=== PATIENT | female | born 1985 | race Hispanic/Latino ===

== ENCOUNTER 2022-05-29 12:14 | Emergency (ER) | payer SELFPAY ==
--- NOTE | 2022-05-29 12:54 | RAD REPORT ---
EXAM DESCRIPTION: RAD - Chest Single View - 05/29/2022 12:46 pm CLINICAL HISTORY: CHEST PAIN COMPARISON: No comparisons FINDINGS: Lines: None. Lungs: No evidence of edema or pneumonia. Pleural: No significant pleural effusions or pneumothorax. Cardiac: The heart size is within normal limits. Bones: No acute fractures. Other: IMPRESSION: No acute cardiopulmonary disease.
[2022-05-29 13:01] LABS: Absolute Lymphocytes (CBC) 1.7 K/uL (0.7-4.9); Lymphocytes % 20.3 % (15.3-44.8); MPV 7.5 fL (7.6-11.3); RBC Red Blood Cell Count 4.62 M/uL (3.86-4.86)
[2022-05-29] MEDS ORDERED: NA CHLORIDE 0.9% 1,000 ML ONE (13:05)
[2022-05-29 13:19] LABS: BUN Blood Urea Nitrogen 8 mg/dL (7-18); Bicarbonate 26 mmol/L (21-32); Glomerular Filtration Rate 93 ml/min (=/>90); Glucose Level 134 mg/dL (74-106); Potassium 3.1 mmol/L (3.5-5.1); Sodium Level 141 mmol/L (136-145)
[2022-05-29 13:20] LABS: Troponin High Sensitivity < 3.0 pg/mL (<58.9)
[2022-05-29 14:29] LABS: Urine Blood 2+ (Negative); Urine Glucose Negative (Negative); Urine Protein Negative (Negative); Urine Specific Gravity <=1.005 (1.005-1.030); Urine pH 6.5 (5.0-7.0)
[2022-05-29 14:56] LABS: SARS-CoV-2 Antigen Rapid Res Negative (Negative)
--- NOTE | 2022-05-29 15:07 | RAD REPORT ---
EXAM DESCRIPTION: CT - Chest For Pe Angio - 05/29/2022 2:50 pm CLINICAL HISTORY: chest pain, SOB, positive d dimer COMPARISON: No comparisons TECHNIQUE: Dynamically enhanced axial 3 mm thick images of the chest were obtained during administra tion of <100> mL Isovue 370 IV contrast. Coronal and oblique reconstruction images were generated and reviewed. Exam utilizes a protocol for optimal evaluation of pulmonary arterial tree. Maximum intensity projections 3D imaging was utilized All CT scans are performed using dose optimization technique as appropriate and may include automated exposure control or mA/KV adjustment according to patient size. FINDINGS: Chest Wall: No suspicious thyroid nodules or pathologic lymphadenopathy. Bilateral breast prostheses. Lungs: No acute abnormality. Pleura: No significant effusions or pneumothorax. Mediastinum/marilyn: No pathologic lymphadenopathy. Small hiatal hernia with thickened distal esophagus. Pulmonary arteries/Aorta: No filling defect identified. No aortic aneurysm. Heart: No significant pericardial effusion. Normal heart size. Upper abdomen: No acute abnormality. Bones: No acute abnormality. Lower chest: No acute abnormality. IMPRESSION: Negative for pulmonary embolism. No acute findings within the chest. Thickened distal es ophagus which could reflect esophagitis.
--- NOTE | 2022-05-29 16:55 | ER ---
Nurse's Notes [facility] Name: Katerina Howe Age: 36 yrs Sex: Female : 1985 Arrival Date: 05/29/2022 Time: 12:15 Bed 16 Private MD: Diagnosis: Palpitations;Lightheaded;Tachycardia, unspecified Presentation: 05/29 12:21 Chief complaint: Sudden onset substernal chest pressure, SOB, and palpitations while hb sitting eating lunch. Coronavirus screen: At this time, the client does not indicate any symptoms associated with coronavirus-19. Ebola Screen: No symptoms or risks identified at this time. Initial Sepsis Screen: Does the patient meet any 2 criteria? No. Patient's initial sepsis screen is negative. Does the patient have a suspected source of infection? No. Patient's initial sepsis screen is negative. Risk Assessment: Do you want to hurt yourself or someone else? Patient reports no desire to harm self or others. Onset of symptoms was May 29, 2022. 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 - Social history:: Smoking status: Patient denies any tobacco usage or history of. Screenin:51 Abuse screen: Denies threats or abuse. Denies injuries from another. Nutritional ld1 screening: No deficits noted. Tuberculosis screening: No symptoms or risk factors identified. Fall Risk None identified. Assessment: 12:51 General: Appears in no apparent distress. comfortable, Behavior is calm, cooperative, ld1 appropriate for age. Pain: Denies pain. Pain:. Neuro: Level of Consciousness is awake, alert, obeys commands, Oriented to person, place, time, situation. Cardiovascular: Capillary refill < 3 seconds Patient's skin is warm and dry. Respiratory: Airway is patent Respiratory effort is even, unlabored. GI: Abdomen is flat, non-distended. : No signs and/or symptoms were reported regarding the genitourinary system. EENT: No signs and/or symptoms were reported regarding the EENT system. Derm: No signs and/or symptoms reported regarding the dermatologic system. Musculoskeletal: No signs and/or symptoms reported regarding the musculoskeletal system. 13:30 Reassessment: Pt c/o dizziness - Notified ERP - See MAR for orders. ld1 16:55 Pain: Pain began. eh3 Vital Signs: 12:21 BP 146 / 100; Pulse 106; Resp 16; Temp 98.5; Pulse Ox 100% on R/A; Weight 54.43 kg (M); hb Height 5 ft. (152.40 cm); Pain 3/10; 12:51 BP 137 / 92; Pulse 91; Resp 18; Pulse Ox 100% on R/A; ld1 13:31 BP 125 / 83; Pulse 82; Resp 16; Pulse Ox 100% on R/A; ld1 14:31 BP 126 / 80; Pulse 93; Resp 18; Pulse Ox 100% on R/A; ld1 15:27 BP 132 / 86; Pulse 97; Resp 18; Pulse Ox 100% on R/A; ld1 16:13 BP 142 / 96; Pulse 90; Resp 18; Pulse Ox 100% on R/A; ld1 12:21 Body Mass Index 23.44 (54.43 kg, 152.40 cm) hb ED Course: 12:15 Patient arrived in ED. mr 12:19 Alexis Rodrigez DO is Attending Physician. ms3 12:24 Triage completed. hb 12:24 Arm band placed on. hb 12:35 Stephanie Salinas, RN is Primary Nurse. ld1 12:47 XRAY Chest (1 view) In Process Unspecified. EDMS 12:51 Patient has correct armband on for positive identification. Placed in gown. Bed in low ld1 position. Call light in reach. Side rails up X2. environmental monitoring technician on. Pulse ox on. NIBP on. Door closed. Noise minimized. Warm blanket given. 12:51 No provider procedures requiring assistance completed. Inserted saline lock: 20 gauge ld1 in left antecubital area, using aseptic technique. Blood collected. Patient maintains SpO2 saturation greater than 95% on room air. 14:31 SARS-COV-2 Antigen Rapid Sent. ld1 14:52 CT Chest For PE Angio In Process Unspecified. EDMS 16:55 Calvin Knapp MD is Referral Physician. ms3 17:02 IV discontinued, intact, bleeding controlled, No redness/swelling at site. ld1 Administered Medications: No medications were administered Medication: 12:51 VIS not applicable for this client. ld1 Outcome: 16:54 Discharge ordered by MD. ms3 17:02 Discharged to home ambulatory. ld1 17:02 Condition: stable 17:02 Discharge instructions given to patient, Instructed on discharge instructions, follow up and referral plans. Demonstrated understanding of instructions, follow-up care. 17:02 Patient left the ED. ld1 Signatures: Dispatcher [employer] EDPA HoweMariah forde mr Annette Cooley, RN RN Alexis Rodrigez DO DO ms3 Stephanie Salinas RN RN ld1 Lora Canas 3 Corrections: (The following items were deleted from the chart) 12:25 12:24 PMHx: Hyperthyroidism; hb hb
--- NOTE | 2022-05-29 16:55 | EDPHYS ---
Physician Documentation [facility] Name: Katerina Howe Age: 36 yrs Sex: Female : 1985 Arrival Date: 05/29/2022 Time: 12:15 Bed 16 Private MD: ED Physician Alexis Rodrigez HPI: 05/29 12:20 This 36 yrs old Female presents to ER via Ambulatory with complaints of Chest ms3 Pain, High Blood Pressure. 12:20 The patient or guardian reports chest pain that is located primarily in the substernal ms3 area. The pain does not radiate. Associated signs and symptoms: Pertinent positives: dizziness, nausea, Pertinent negatives: vomiting. The chest pain is described as squeezing. Modifying factors: The symptoms are alleviated by nothing. the symptoms are aggravated by nothing. Severity of pain: At its worst the pain was moderate in the emergency department the pain is unchanged is a 5 / 10. 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 - Social history:: Smoking status: Patient denies any tobacco usage or history of. ROS: 12:20 Constitutional: Negative for fever, and chills. ms3 12:20 Respiratory: Negative for shortness of breath, cough, wheezing, and pleuritic chest pain, MS/Extremity: Negative for injury and deformity, Skin: Negative for injury, rash, and discoloration, Neuro: Negative for headache, weakness, numbness, tingling. 12:20 Cardiovascular: Positive for chest pain. 12:20 Abdomen/GI: Positive for nausea. 12:20 All other systems are negative. Exam: 12:20 Constitutional: This is a well developed, well nourished patient who is awake, alert, ms3 and in no acute distress. Head/Face: Normocephalic, atraumatic. Chest/axilla: Normal chest wall appearance and motion. Nontender with no deformity. Cardiovascular: Regular rate and rhythm with a normal S1 and S2. No gallops, murmurs, or rubs. Normal PMI, no JVD. No pulse deficits. Respiratory: Lungs have equal breath sounds bilaterally, clear to auscultation and percussion. No rales, rhonchi or wheezes noted. No increased work of breathing, no retractions or nasal flaring. Skin: Warm, dry with normal turgor. Normal color with no rashes, no lesions, and no evidence of cellulitis. MS/ Extremity: Pulses equal, no cyanosis. Neurovascular intact. Full, normal range of motion. Psych: Awake, alert, with orientation to person, place and time. Behavior, mood, and affect are within normal limits. 12:31 ECG was reviewed by the Attending Physician. ms3 Vital Signs: 12:21 BP 146 / 100; Pulse 106; Resp 16; Temp 98.5; Pulse Ox 100% on R/A; Weight 54.43 kg (M); hb Height 5 ft. (152.40 cm); Pain 3/10; 12:51 BP 137 / 92; Pulse 91; Resp 18; Pulse Ox 100% on R/A; ld1 13:31 BP 125 / 83; Pulse 82; Resp 16; Pulse Ox 100% on R/A; ld1 14:31 BP 126 / 80; Pulse 93; Resp 18; Pulse Ox 100% on R/A; ld1 15:27 BP 132 / 86; Pulse 97; Resp 18; Pulse Ox 100% on R/A; ld1 16:13 BP 142 / 96; Pulse 90; Resp 18; Pulse Ox 100% on R/A; ld1 12:21 Body Mass Index 23.44 (54.43 kg, 152.40 cm) hb MDM: 12:20 Differential diagnosis: abnormal EKG, acute myocardial infarction, acute pericarditis, ms3 anxiety, coronary artery disease pneumothorax, pulmonary embolus. 12:37 Patient medically screened. ms3 16:54 HEART Score: History: Slightly Suspicious (0), ECG: Normal (0), Age: < or = 45 years ms3 (0), Risk Factors: No Risk Factors Known (0), Troponin: < or = 1 x Normal Limit (0), Total Score = 0. The patient's pulmonary embolism risk score was calculated as follows: the patients heart rate is greater than 100 beats per minute (1.5 Pts). Data reviewed: vital signs, nurses notes, lab test result(s), EKG, radiologic studies, and as a result, I will discharge patient. ED course: Discussed observation with patient, her sister, and her mother. Patient states these symptoms have been ongoing for months and she would like to be discharged. Discussed risks of arrhythmia and with patient, her mother, and sister. Patient understands/ accepts risks. Patient is improved, in NAD, non-toxic appearing, ambulatory in ED, speaking full sentences.. 05/29 12:19 Order name: Basic Metabolic Panel; Complete Time: 13:31 ms3 05/29 12:19 Order name: CBC with Diff; Complete Time: 13:04 ms3 05/29 12:19 Order name: Troponin HS; Complete Time: 13:31 ms3 05/29 13:51 Order name: SARS-COV-2 Antigen Rapid; Complete Time: 15:02 ms3 05/29 13:51 Order name: D-Dimer; Complete Time: 15:02 ms3 05/29 14:30 Order name: Urine Dipstick-Ancillary; Complete Time: 15:02 EDMS 05/29 12:19 Order name: XRAY Chest (1 view); Complete Time: 13:04 ms3 05/29 12:19 Order name: EKG; Complete Time: 12:20 ms3 05/29 12:19 Order name: Cardiac monitoring; Complete Time: 12:50 ms3 05/29 12:19 Order name: EKG - Nurse/Tech; Complete Time: 12:33 ms3 05/29 12:19 Order name: IV Saline Lock; Complete Time: 12:50 ms3 05/29 12:19 Order name: Labs collected and sent; Complete Time: 12:50 ms3 05/29 12:19 Order name: O2 Per Protocol; Complete Time: 12:50 ms3 05/29 14:30 Order name: CT Chest For PE Angio; Complete Time: 15:25 ms3 05/29 12:19 Order name: O2 Sat Monitoring; Complete Time: 12:51 ms3 05/29 13:51 Order name: Urine Test (obtain specimen); Complete Time: 14:31 ms3 EC:31 Rate is 87 beats/min. Rhythm is regular. QRS Cora is Normal. CT interval is shortened. ms3 QRS interval is normal. Clinical impression: NSR with short CT interval. Interpreted by me. Reviewed by me. Administered Medications: No medications were administered Disposition Summary: 05/29/22 16:54 Discharge Ordered Location: Home ms3 Condition: Stable ms3 Diagnosis - Palpitations ms3 - Lightheaded ms3 - Tachycardia, unspecified ms3 Followup: ms3 - With: Calvin Knapp MD - When: 1 - 2 days - Reason: Recheck today's complaints Discharge Instructions: - Discharge Summary Sheet ms3 - Palpitations ms3 - Sinus Tachycardia ms3 Forms: - Medication Reconciliation Form ms3 - Thank You Letter ms3 - Work release form ms3 - Antibiotic Education ms3 - Prescription Opioid Use ms3 Signatures: Dispatcher [employer] EDAnnette Sharma RN RN Alexis Walker DO DO ms3 Corrections: (The following items were deleted from the chart) 12:25 12:24 PMHx: Hyperthyroidism; hb hb
[2022-05-29 17:29] VITALS: TEMP 98.5; O2SAT 100
[2022-05-29 17:39] VITALS: BP 142/96
--- NOTE | 2022-05-30 07:24 | EKG ---
Test Date: 2022-05-29 Test Time: 12:31:28 Sap Hana Developer: HB MEASUREMENT RESULTS: Intervals: Rate: 87 W[place]: 110 QRSD: 74 QT: 348 QTc: 418 [place]: P: 45 WY: 110 QRS: 54 T: 52 INTERPRETIVE STATEMENTS: Sinus rhythm with short [place] Otherwise normal ECG No previous ECG available for comparison Electronically Signed On 05-30-22 07:20:41 CDT by Scott Trinidad
== END 2022-05-29 17:02 | disposition home or self-care (01) ==
LOC: ER 12:14
DX: R00.2 Palpitations (principal); R42 Dizziness and giddiness; R00.0 Tachycardia, unspecified; Z20.822 Contact with and (suspected) exposure to COVID-19; R07.89 Other chest pain; R06.02 Shortness of breath; I10 Essential (primary) hypertension
CPT/HCPCS: 36415; 71045; 71275; 80048; 81003; 84484; 85025; 85379; 87811; 93005; J7030; Q9967

== ENCOUNTER 2022-07-03 19:10 | Emergency (ER) | payer SELFPAY ==
[2022-07-03] MEDS ORDERED: NA CHLORIDE 0.9% 500 ML ONE ×2 (20:25→21:52)
[2022-07-03 20:52] LABS: Absolute Lymphocytes (CBC) 2.8 K/uL (0.7-4.9); Hematocrit 45.6 % (36.0-45.0); Lymphocytes % 20.4 % (15.3-44.8); MCV 91.3 fL (80-100); RBC Red Blood Cell Count 4.99 M/uL (3.86-4.86)
[2022-07-03 20:54] LABS: Blood Morphology Comment NOT SEEN (NOT SEEN); Platelet Estimate INCR; Platelets, Giant PRESENT; White Blood Cell Scan OK (OK)
--- NOTE | 2022-07-03 21:02 | RAD REPORT ---
EXAM DESCRIPTION: RAD - Chest Single View - 07/03/2022 8:50 pm CLINICAL HISTORY: COUGH Chest pain. COMPARISON: Chest Single View dated 05/29/2022 FINDINGS: Portable technique limits examination quality. The lungs are grossly clear. The heart is normal in size. No displaced fractures. IMPRESSION: No acute intrathoracic process suspected.
[2022-07-03 21:03] LABS: Protime INR 0.98
[2022-07-03 21:11] LABS: SARS-CoV-2 Antigen Rapid Res Negative (Negative)
[2022-07-03 21:16] LABS: Urine Blood Negative (Negative); Urine Glucose Negative (Negative); Urine Protein Negative (Negative); Urine Specific Gravity 1.015 (1.005-1.030)
[2022-07-03 21:47] LABS: Albumin 4.9 g/dL (3.4-5.0); Bilirubin Direct 0.1 mg/dL (0-0.2); Bilirubin Total 0.5 mg/dL (0.2-1.0); Magnesium 2.3 mg/dL (1.8-2.4); Potassium 3.8 mmol/L (3.5-5.1); Protein, Total 9.6 g/dL (6.4-8.2)
[2022-07-03] MEDS ORDERED: ASPIRIN 81 MG CHEWABLE TABLET ONE (21:55)
[2022-07-03 21:57] LABS: Urine Specific Gravity/Preg 1.015 (1.005-1.030)
[2022-07-03 22:18] LABS: Thyroid Stimulating Hormone 1.4 uIU/mL (0.360-3.740); Troponin High Sensitivity 3.2 pg/mL (<58.9)
--- NOTE | 2022-07-03 22:24 | RAD REPORT ---
EXAM DESCRIPTION: US - Extrem Venous W Compress [place] - 07/03/2022 10:17 pm CLINICAL HISTORY: PAIN Bilateral leg edema and swelling. COMPARISON: No comparisons TECHNIQUE: Real-time sonographic interrogation of the left and right lower extremity deep venous sys tems was performed. FINDINGS: Normal compressibility, flow augmentation, phasic flow and spontaneous flow is identified in both the left and right lower extremity deep venous systems. IMPRESSION: No sonographic evidence of left or right lower extremity deep venous thrombosis.
[2022-07-03] MEDS ORDERED: PANTOPRAZOLE 40 MG INJ ONE (23:20)
--- NOTE | 2022-07-03 23:38 | ER ---
Nurse's Notes [facility] Name: Katerina Howe Age: 37 yrs Sex: Female : 1985 Arrival Date: 07/03/2022 Time: 19:15 Bed 10 Private MD: Diagnosis: Palpitations;Dizziness and giddiness;Anxiety disorder, unspecified;Elevated white blood cell count;Esophagitis, unspecified Presentation: 07/03 19:23 Chief complaint: Patient states: pt has history of anxiety attacks; she became dizzy, jh5 brain fog, blurred vision, heart racing and feeling of heat on her face...pt was diagnosed with anxiety attacks approx 5 months ago and put on buspar and states it isnt helping at all so she bought xanax off a friend and it's not helping. Has an appointment with doctor here in [place] (first name janes) on July 12. Coronavirus screen: Vaccine status: Patient reports receiving the 2nd dose of the covid vaccine. Client denies travel out of the [place] in the last 14 days. Ebola Screen: Patient negative for fever greater than or equal to 101.5 degrees Fahrenheit, and additional compatible Ebola Virus Disease symptoms Patient denies exposure to infectious person. Patient denies travel to an Ebola-affected area in the 21 days before illness onset. Initial Sepsis Screen: Does the patient meet any 2 criteria? No. Patient's initial sepsis screen is negative. Does the patient have a suspected source of infection? No. Patient's initial sepsis screen is negative. Risk Assessment: Do you want to hurt yourself or someone else? Patient reports no desire to harm self or others. Onset of symptoms was January 2022. 19:23 Method Of Arrival: Ambulatory [facility] 19:23 Acuity: SARAH 4 jh5 Triage Assessment: 19:30 General: Appears in no apparent distress. slender, well groomed, Behavior is calm, jh5 cooperative, appropriate for age, anxious. Pain: Denies pain. Cardiovascular: No deficits noted. 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 - Social history:: Smoking status: Patient denies any tobacco usage or history of. - Family history:: not pertinent. Screenin:00 Abuse screen: Denies threats or abuse. Denies injuries from another. Nutritional hb screening: No deficits noted. Tuberculosis screening: No symptoms or risk factors identified. Fall Risk None identified. Assessment: 20:58 General: Appears in no apparent distress. Behavior is calm, cooperative, appropriate kd3 for age. Neuro: Level of Consciousness is awake, alert, obeys commands, Oriented to person, place, time, situation. 21:49 Reassessment: Patient appears in no apparent distress at this time. Patient and/or hb family updated on plan of care and expected duration. Pain level reassessed. Patient is alert, oriented x 3, equal unlabored respirations, skin warm/dry/pink. 22:55 Reassessment: Patient appears in no apparent distress at this time. Patient and/or hb family updated on plan of care and expected duration. Pain level reassessed. Patient is alert, oriented x 3, equal unlabored respirations, skin warm/dry/pink. Vital Signs: 19:23 BP 127 / 98; Pulse 86; Resp 18; Temp 98.6; Pulse Ox 100% ; Weight 53.52 kg; Height 5 [facility] ft. 1 in. (154.94 cm); Pain 0/10; 20:45 BP 136 / 86; Pulse 82; Resp 15; Pulse Ox 98% on R/A; hb 22:45 BP 132 / 82; Pulse 80; Resp 15; Pulse Ox 100% ; hb 19:23 Body Mass Index 22.30 (53.52 kg, 154.94 cm) [facility] ED Course: 19:15 Patient arrived in ED. [facility] 19:30 Triage completed. [facility] 19:30 Arm band placed on right wrist. EKG completed in triage. Results shown to . [facility] 19:45 Juma Lance MD is Attending Physician. [facility] 20:30 Missed attempt(s): 20 gauge in left antecubital area. Bleeding controlled, band aid aa9 applied, catheter tip intact. 20:35 Inserted saline lock: 20 gauge in right antecubital area, using aseptic technique. aa9 Blood collected. 20:46 Patient has correct armband on for positive identification. Bed in low position. aa9 20:52 XRAY Chest (1 view) In Process Unspecified. EDMS 20:58 Yvette Borrero, RN is Primary Nurse. kd3 20:58 No provider procedures requiring assistance completed. Patient maintains SpO2 kd3 saturation greater than 95% on room air. 22:19 US Extremity Venous W Compression [place] In Process Unspecified. EDMS 22:41 US Carotid Artery Bilateral In Process Unspecified. EDMS 22:56 CT Head Brain wo Cont In Process Unspecified. EDMS 23:38 Scott Trinidad MD is Referral Physician. [facility] 23:38 Satya Pearl MD is Referral Physician. [facility] 23:38 Clyde Guzman MD is Referral Physician. [facility] 07/04 00:04 IV discontinued, intact, bleeding controlled, No redness/swelling at site. hb Administered Medications: 07/03 20:43 Drug: NS 0.9% 500 ml Route: IV; Rate: bolus; Site: right antecubital; jh 21:48 Drug: NS 0.9% 500 ml Route: IV; Rate: bolus; Site: right antecubital; hb 21:48 Drug: Aspirin Chewable Tablet 162 mg Route: PO; hb 22:22 Follow up: Response: No adverse reaction hb 23:00 Drug: ProTONIX (pantoprazole) 40 mg Route: IVP; Site: right antecubital; hb 23:25 Follow up: Response: No adverse reaction hb Medication: 20:00 VIS not applicable for this client. hb Outcome: 23:38 Discharge ordered by . [facility] 07/04 00:04 Discharged to home ambulatory. hb Condition: stable Discharge instructions given to patient, Instructed on discharge instructions, follow up and referral plans. medication usage, Demonstrated understanding of instructions, follow-up care, medications, Prescriptions given X 3. 00:05 Patient left the ED. hb Signatures: Dispatcher [employer] EDJuma Bishop MD MD cha Baxter, Heather, RN RN Rafaela Gonzalez Jessica RN RN jh5 Yvette Borrero, RN RADHA kd3 Leticia Nguyen RN RN aa9 Corrections: (The following items were deleted from the chart) 07/03 20:43 20:41 NS 0.9% 500 ml IV at bolus in left antecubital jh5 jh5 20:46 20:45 Inserted saline lock: 20 gauge in right antecubital area, using aseptic aa9 technique. Blood collected. aa9
--- NOTE | 2022-07-03 23:39 | EDPHYS ---
Physician Documentation [facility] Name: Katerina Howe Age: 37 yrs Sex: Female : 1985 Arrival Date: 07/03/2022 Time: 19:15 Bed 10 Private MD: ED Physician Juma Lance HPI: 07/03 21:35 This 37 yrs old Female presents to ER via Ambulatory with complaints of renée Dizziness, Fainting, Chest Pain, Neck Pain, <24hrs Old. 21:35 The patient presents with dizziness, lightheadedness. Onset: The symptoms/episode renée began/occurred 1 day(s) ago. Context: occurred at an unknown location, occurred while the patient was walking, just prior to the episode the patient experienced no apparent symptoms. Modifying factors: The symptoms are alleviated by nothing, the symptoms are aggravated by nothing. Associated signs and symptoms: The patient has no apparent associated signs or symptoms. Severity of symptoms: At their worst the symptoms were mild moderate in the emergency department the symptoms have improved moderately. Patient's baseline: Neuro:. The patient has not experienced similar symptoms in the past. 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 - Social history:: Smoking status: Patient denies any tobacco usage or history of. - Family history:: not pertinent. ROS: 21:35 Constitutional: Negative for fever, chills, and weight loss, Eyes: Negative for injury, renée pain, redness, and discharge, ENT: Negative for injury, pain, and discharge, Neck: Negative for injury, pain, and swelling, Respiratory: Negative for shortness of breath, cough, wheezing, and pleuritic chest pain, Abdomen/GI: Negative for abdominal pain, nausea, vomiting, diarrhea, and constipation, Back: Negative for injury and pain, : Negative for injury, bleeding, discharge, and swelling, MS/Extremity: Negative for injury and deformity, Skin: Negative for injury, rash, and discoloration, Neuro: Negative for headache, weakness, numbness, tingling, and seizure, Psych: Negative for depression, anxiety, suicide ideation, homicidal ideation, and hallucinations, Allergy/Immunology: Negative for hives, rash, and allergies, Endocrine: Negative for neck swelling, polydipsia, polyuria, polyphagia, and marked weight changes, Hematologic/Lymphatic: Negative for swollen nodes, abnormal bleeding, and unusual bruising. 21:35 Cardiovascular: Positive for chest pain, palpitations. Exam: 21:35 Constitutional: This is a well developed, well nourished patient who is awake, alert, renée and in no acute distress. Head/Face: Normocephalic, atraumatic. Eyes: Pupils equal round and reactive to light, extra-ocular motions intact. Lids and lashes normal. Conjunctiva and sclera are non-icteric and not injected. Cornea within normal limits. Periorbital areas with no swelling, redness, or edema. ENT: Nares patent. No nasal discharge, no septal abnormalities noted. Tympanic membranes are normal and external auditory canals are clear. Oropharynx with no redness, swelling, or masses, exudates, or evidence of obstruction, uvula midline. Mucous membranes moist. Neck: Trachea midline, no thyromegaly or masses palpated, and no cervical lymphadenopathy. Supple, full range of motion without nuchal rigidity, or vertebral point tenderness. No Meningismus. Chest/axilla: Normal chest wall appearance and motion. Nontender with no deformity. No lesions are appreciated. Cardiovascular: Regular rate and rhythm with a normal S1 and S2. No gallops, murmurs, or rubs. Normal PMI, no JVD. No pulse deficits. Respiratory: Lungs have equal breath sounds bilaterally, clear to auscultation and percussion. No rales, rhonchi or wheezes noted. No increased work of breathing, no retractions or nasal flaring. Abdomen/GI: Soft, non-tender, with normal bowel sounds. No distension or tympany. No guarding or rebound. No evidence of tenderness throughout. Back: No spinal tenderness. No costovertebral tenderness. Full range of motion. Skin: Warm, dry with normal turgor. Normal color with no rashes, no lesions, and no evidence of cellulitis. MS/ Extremity: Pulses equal, no cyanosis. Neurovascular intact. Full, normal range of motion. Neuro: Awake and alert, GCS 15, oriented to person, place, time, and situation. Cranial nerves II-XII grossly intact. Motor strength 5/5 in all extremities. Sensory grossly intact. Cerebellar exam normal. Normal gait. Psych: Awake, alert, with orientation to person, place and time. Behavior, mood, and affect are within normal limits. 21:35 ECG was reviewed by the Attending Physician. 21:35 Musculoskeletal/extremity: DVT Exam: No signs of deep vein thrombosis. no pain, no swelling, no tenderness, negative Homans' sign noted on exam, no appreciated bluish discoloration, no erythema, no increased warmth. Vital Signs: 19:23 BP 127 / 98; Pulse 86; Resp 18; Temp 98.6; Pulse Ox 100% ; Weight 53.52 kg; Height 5 jh5 ft. 1 in. (154.94 cm); Pain 0/10; 20:45 BP 136 / 86; Pulse 82; Resp 15; Pulse Ox 98% on R/A; hb 22:45 BP 132 / 82; Pulse 80; Resp 15; Pulse Ox 100% ; hb 19:23 Body Mass Index 22.30 (53.52 kg, 154.94 cm) 5 MDM: 19:45 Patient medically screened. renée 21:38 Differential diagnosis: cardiac arrhythmia, CVA, generalized weakness, hypovolemia, renée TIA. Data reviewed: vital signs, nurses notes, lab test result(s), EKG, radiologic studies, CT scan, doppler, plain films. 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 Test interpretation: by ED physician or midlevel provider: ECG, plain radiologic studies. Counseling: I had a detailed discussion with the patient and/or guardian regarding: the historical points, exam findings, and any diagnostic results supporting the discharge/admit diagnosis, lab results, radiology results, the need for outpatient follow up, for definitive care, a corrosion control fitter, a family practitioner. 07/03 20:09 Order name: Basic Metabolic Panel; Complete Time: 23:14 renée 07/03 20:09 Order name: CBC with Diff; Complete Time: :22 renée 07/03 20:09 Order name: D-Dimer; Complete Time: : renée 07/03 20:09 Order name: LFT's; Complete Time: 23:14 [facility] 07/03 20:09 Order name: Magnesium; Complete Time: 23:14 [facility] 07/03 20:09 Order name: NT PRO-BNP; Complete Time: 23:14 [facility] 07/03 20:09 Order name: PT-INR; Complete Time: 21:22 [facility] 07/03 20:09 Order name: Troponin HS; Complete Time: 23:14 [facility] 07/03 20:09 Order name: XRAY Chest (1 view); Complete Time: 21:22 [facility] 07/03 20:09 Order name: TSH; Complete Time: 23:14 [facility] 07/03 20:09 Order name: SARS RAPID; Complete Time: 21:22 [facility] 07/03 20:55 Order name: CBC Smear Scan; Complete Time: 21:22 [facility] 07/03 21:17 Order name: Urine Dipstick-Ancillary; Complete Time: 21:22 [facility] 07/03 21:18 Order name: Urine --Ancillary (enter results); Complete Time: 21:59 [facility] 07/03 20:09 Order name: EKG; Complete Time: 20:10 [facility] 07/03 20:09 Order name: Cardiac monitoring; Complete Time: 20:41 [facility] 07/03 20:09 Order name: EKG - Nurse/Tech; Complete Time: 20:41 [facility] 07/03 20:09 Order name: IV Saline Lock; Complete Time: 20:41 [facility] 07/03 20:09 Order name: Labs collected and sent; Complete Time: 20:41 [facility] 07/03 20:09 Order name: O2 Per Protocol; Complete Time: 20:41 [facility] 07/03 20:09 Order name: O2 Sat Monitoring; Complete Time: 20:41 [facility] 07/03 20:09 Order name: Urine Dipstick-Ancillary (obtain specimen); Complete Time: 21:16 [facility] 07/03 21:09 Order name: US Extremity Venous W Compression [place]; Complete Time: 23:14 [facility] 07/03 22:15 Order name: US Carotid Artery Bilateral [facility] 07/03 22:15 Order name: CT Head Brain wo Cont [facility] 07/03 20:09 Order name: Urine Test (obtain specimen); Complete Time: 21:16 [facility] EC:35 Rate is 73 beats/min. Rhythm is regular. QRS [place] is Normal. MD interval is normal. QRS renée interval is normal. QT interval is normal. No Q waves. T waves are Normal. No ST changes noted. Clinical impression: Normal ECG and No evidence of ischemia. Interpreted by me. Reviewed by me. Administered Medications: 20:43 Drug: NS 0.9% 500 ml Route: IV; Rate: bolus; Site: right antecubital; jh5 21:48 Drug: NS 0.9% 500 ml Route: IV; Rate: bolus; Site: right antecubital; hb 21:48 Drug: Aspirin Chewable Tablet 162 mg Route: PO; hb 22:22 Follow up: Response: No adverse reaction hb 23:00 Drug: ProTONIX (pantoprazole) 40 mg Route: IVP; Site: right antecubital; hb 23:25 Follow up: Response: No adverse reaction hb Disposition Summary: 07/03/22 23:38 Discharge Ordered Location: Home renée Problem: new renée Symptoms: have improved renée Condition: Stable renée Diagnosis - Palpitations renée - Dizziness and giddiness renée - Anxiety disorder, unspecified renée - Elevated white blood cell count renée - Esophagitis, unspecified renée Followup: renée - With: Private Physician - When: 2 - 3 days - Reason: Recheck today's complaints, Continuance of care, Re-evaluation by your physician Followup: renée - With: - When: 2 - 3 days - Reason: Recheck today's complaints, Re-evaluation by your physician Followup: renée - With: - When: 2 - 3 days - Reason: Recheck today's complaints, Re-evaluation by your physician Followup: renée - With: - When: 2 - 3 days - Reason: Recheck today's complaints, Re-evaluation by your physician Discharge Instructions: - Discharge Summary Sheet renée - Panic Attack renée - Dizziness renée - Palpitations renée - Food Choices for Gastroesophageal Reflux Disease, Adult renée - Esophagitis renée - Aspirin and Your Heart renée - Palpitations, [id number] renée - Dizziness, [id number] renée - Panic Attack, [id number] renée Forms: - Medication Reconciliation Form renée - Thank You Letter renée - Antibiotic Education renée - Prescription Opioid Use renée Prescriptions: - Toprol XL 25 mg Oral Tablet - take 1 tablet by ORAL route once daily; 20 tablet; Refills: 0, Product renée Selection Permitted - Xanax 0.5 mg Oral Tablet - take 1 tablet by ORAL route every 8 hours As needed; 20 tablet; Refills: 0, [facility] Product Selection Permitted - Protonix 40 mg Oral Tablet - take 1 tablet by ORAL route once daily; 30 tablet; Refills: 0, Product [facility] Selection Permitted Signatures: Dispatcher [employer] Juma Crooks MD MD cha Baxter, Heather, RN RN Rafaela Gaona RN RN jh5 Tamar Cloud PA PA sb3
[2022-07-04 02:20] VITALS: TEMP 98.6
[2022-07-04 02:30] VITALS: BP 132/82; O2SAT 100
--- NOTE | 2022-07-04 06:25 | EKG ---
Test Date: 2022-07-03 Test Time: 20:25:40 [employer] Admin: KELBY MEASUREMENT RESULTS: Intervals: Rate: 73 NC: 120 QRSD: 74 QT: 380 QTc: 418 [place]: P: 43 NC: 120 QRS: 56 T: 44 INTERPRETIVE STATEMENTS: Normal sinus rhythm Normal ECG Compared to ECG 05/29/2022 12:31:28 Short NC interval no longer present Electronically Signed On 07-04-22 06:23:43 CDT by Scott Trinidad
--- NOTE | 2022-07-04 10:44 | RAD REPORT ---
EXAM DESCRIPTION: US - CP - 07/03/2022 11:30 pm CLINICAL HISTORY: 37 years Female, DIZZINESS COMPARISON: None. TECHNIQUE: Grayscale, color Doppler, and spectral Doppler analysis of the carotid and vertebral leonardo harman of the neck was performed. FINDINGS: Right: Vessel Peak Systolic Velocity (cm/s) CCA 77 ICA prox 61 ICA mid 72 ICA dist 73 Vert 72 ICA/CCA 0.96 Left: Vessel Peak Systolic Velocity (cm/s) CCA 102 ICA prox 75 ICA mid 57 ICA dist 84 Vert 20 ICA/CCA 0.82 Minimal atherosclerotic plaque noted bilaterally. Normal arterial waveforms noted bilaterally. Antegr ronit flow in the bilateral vertebral arteries demonstrated. Right vertebral artery may be dominant. IMPRESSION: No evidence of hemodynamically significant carotid stenosis in the neck. Electronically signed by: Jak Mendoza MD 07/03/2022 11:22 PM CDT Due to temporary technical issues with the PACS/Fluency reporting system, reports are being signed by the in house radiologists without review as a courtesy to insure prompt reporting. The interpreting radiologist is fully responsible for the content of the report.
--- NOTE | 2022-07-04 10:47 | RAD REPORT ---
EXAM DESCRIPTION: CT - Head Brain Wo Cont - 07/04/2022 6:56 am CLINICAL HISTORY: 37 years Female DIZZY COMPARISON: None TECHNIQUE: Images were obtained in axial, sagittal, and coronal planes. This exam was performed according to our departmental dose-optimization program which includes use of Automated Exposure Control, adjustment of the mA and/or kV according to patient size and/or use of i terative reconstruction technique. FINDINGS: Ventricular system appears normal. No abnormal areas of increased attenuation seen. No extra-axial fluid collections noted. No evidence for skull fracture. Symmetric aeration mastoid air cells bilaterally. Unremarkable parana bren sinuses. IMPRESSION: No acute intracranial abnormality. No evidence for hemorrhage, mass lesion, or large acu te infarction. Electronically signed by: Yuridia Stringer MD 07/03/2022 11:20 PM CDT Due to temporary technical issues with the PACS/Fluency reporting system, reports are being signed by the in house radiologists without review as a courtesy to insure prompt reporting. The interpreting radiologist is fully responsible for the content of the report.
== END 2022-07-04 00:05 | disposition home or self-care (01) ==
LOC: ER 19:10
DX: R42 Dizziness and giddiness (principal); R00.2 Palpitations; F41.9 Anxiety disorder, unspecified; D72.829 Elevated white blood cell count, unspecified; K20.90 Esophagitis, unspecified without bleeding; Z20.822 Contact with and (suspected) exposure to COVID-19
CPT/HCPCS: 36415; 70450; 71045; 80048; 80076; 81003; 81025; 83735; 83880; 84443; 84484; 85025; 85379; 85610; 87811; 93005; 93880; 93970; 96374; 99284; C9113; J7040

== ENCOUNTER 2022-07-25 13:58 | Emergency (ER) | payer SELFPAY ==
--- OUTSIDE RECORDS SUMMARY | 2022-07-25 14:03 | XMS REPORT | Continuity of Care Document ---
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 WHITE BLOOD CELL (test code = 8.95 x10 3/uL 4.80-10.80 N WBC) RED BLOOD CELL (test code = 5.09 x10 6/uL 4.2-5.4 N RBC) HEMOGLOBIN (test code = HGB) 15.5 G/DL 12.0-16.0 N HEMATOCRIT (test code = HCT) 46.3 % 37-47 N MEAN CELL VOLUME (test code = 91.0 FL 81-99 N MCV) MEAN CELL HGB (test code = MCH) 30.5 PG 27-31 N MEAN CELL HGB CONCENTRATION 33.5 G/DL 33-37 N (test code = MCHC) RED CELL DISTRIBUTION WIDTH 12.2 % 11.5-14.5 N (test code = RDW) PLATELET COUNT (test code = 435 x10 3/uL 150-450 N PLT) MEAN PLATELET VOLUME (test code 9.5 FL 7.4-10.4 N = MPV) NEUTROPHIL % (test code = NT%) 68.9 % 42-86 N LYMPHOCYTE % (test code = LY%) 21.0 % 24-44 L MONOCYTE % (test code = MO%) 7.3 % 0.0-4.0 H EOSINOPHIL % (test code = EO%) 2.5 % 0.0-2.7 N BASOPHIL % (test code = BA%) 0.3 % 0.0-0.5 N NEUTROPHIL # (test code = NT#) 6.17 x10 3/uL 1.8-7.7 N LYMPHOCYTE # (test code = LY#) 1.88 x10 3/uL 1.0-4.8 N MONOCYTE # (test code = MO#) 0.65 x10 3/uL 0.0-0.8 N EOSINOPHIL # (test code = EO#) 0.22 x10 3/uL 0.0-0.5 N BASOPHIL # (test code = BA#) 0.03 x10 3/uL 0.0-0.2 N - CT HEAD/BRAIN W/O [id number] 03:27:00 [facility] 1985 Sex: F Patient Name: AUDI CELAYA Unit No: [id number] EXAMS: CPT CODE: [id number] CT HEAD/BRAIN W/O CONT [id number] Reason: LEFT SIDE NUMB Exam: CT head without contrast. Location: H 12 History: LEFT SIDE NUMB Technique: Unenhanced spiral slices were taken from the base of the skull, through the vertex. One or moreof the following dose reduction techniques were used: Automated exposure control, adjustment of the mA and/or kV according to patient size, and/or utilization of iterative reconstruction technique. Findings: No acute intracranial abnormality is identified. The brain parenchyma and the CSF spaces are within normal limits for age. No mass, midline shift, hemorrhage, edema or hydrocephalus is seen. The v isualized paranasal sinuses are clear. The mastoid air cells are well pneumatized. The bony calvarium is intact. Impression: 1. No acute intracranial abnormality. 2. Unremarkable exam. at 0327 Reported and signed by: Parrish High MD CC: Celestine Calderon DO Technologist: Shagufta Sawant RT CT Trscrpt Dt/ ([id number].[id number] Orig Print D/T: S: 12/07/2021 (033) CTDI: DLP: [place] FSED NAME: AUDI CELAYA [address] [place] [address] PHYS: Celestine Landaverde DO [address] : 1985 AGE: 36 SEX: F [place], [place] [address] LOC: D.PER PHONE #: [phone] EXAM DATE: 12/07/2021 STATUS: PRE ER FAX#: RAD NO: DC Dt: PAGE 1 Signed ReportCARDIAC ENZYMES 2016-07-30 10:25:00 Test Item Value Reference Range Interpretation Comments CK MB (test code = CK MB) 0.7 0.5-3.6 [facility] [id number] 10:25:00 Test Item Value Reference Range Interpretation Comments CK MB Index (test 0.7 See_Comment [Automate d message] The code = CK MB Index) system w [facility] generated this result transmit jimmie reference range : <=2.5. The reference range was not used to interpr et this result as linette l/abnormal. [facility] [id number] 10:25:00 Test Item Value Reference Range Interpretation Comments Troponin-I (test code no gt See_Comment [Auto mated message] The = Troponin-I) system which g enerated this result transmit jimmie reference range : <=0.40. The reference r ting was not used to interpr et this result as linette l/abnormal. [facility] [id number] 10:25:00 Test Item Value Reference Range Interpretation Comments Troponin-T (test code no gt See_Comment [Auto mated message] The = Troponin-T) system which g enerated this result transmit jimmie reference range : <=0.100. The reference r ting was not used to interpr et this result as linette l/abnormal. [facility] [id number] 10:25:00 Test Item Value Reference Range Interpretation Comments Total CK (test code = Total CK) 94 12-191 [facility] [id number] 10:25:00 Test Item Value Reference Range Interpretation Comments Phosphorus (test code = Phosphorus) 3.4 2.5-4.5 [facility] [id number] 10:25:00 Test Item Value Reference Range Interpretation Comments Magnesium Lvl (test code = Magnesium 2.1 1.8-2.4 Lvl) [facility] CenterAccudial PharmaceuticalATHYROID [id number] 10:25:00 Test Item Value Reference Range Interpretation Comments Ca Ion WB (test code = Ca Ion WB) 1.02 1.05-1.25 [facility] [id number] 10:25:00 Test Item Value Reference Range Interpretation Comments Ca Norm WB (test code = Ca Norm WB) 1.00 1.05-1.25 [facility] [employer] [id number] 05:37:00 Test Item Value Reference Range Interpretation Comments Calcium Lvl (test code = Calcium Lvl) 8.3 8.5-10.5 [facility] [id number] 05:37:00 Test Item Value Reference Range Interpretation Comments Sodium Lvl (test code = Sodium Lvl) 140 135-145 [facility] [id number] 05:37:00 Test Item Value Reference Range Interpretation Comments Potassium Lvl (test code = Potassium 3.4 3.5-5.1 Lvl) [facility] [id number] 05:37:00 Test Item Value Reference Range Interpretation Comments Chloride Lvl (test code = Chloride Lvl) 105 95-109 [facility]2016-09-19 05:37:00 Test Item Value Reference Range Interpretation Comments CO2 (test code = CO2) 25 24-32 [facility]2016-09-19 05:37:00 Test Item Value Reference Range Interpretation Comments BUN (test code = BUN) 14 7-22 [facility]2016-09-19 05:37:00 Test Item Value Reference Range Interpretation Comments Glucose Lvl (test code = Glucose Lvl) 110 70-99 [facility]2016-09-19 05:37:00 Test Item Value Reference Range Interpretation Comments Creatinine Lvl (test code = Creatinine 0.59 0.50-1.40 Lvl) [facility]2016-09-19 05:37:00 Test Item Value Reference Range Interpretation Comments eGFR (test code = eGFR) 122 [facility]2016-09-19 05:37:00 Test Item Value Reference Range Interpretation Comments AGAP (test code = AGAP) 13.4 10.0-20.0 [place] [id number] 05:37:00 Test Item Value Reference Range Interpretation Comments S Preg (test code = S Negative (07/30/16 12:37 Preg) AM) [id number] 05:37:00 Test Item Value Reference Range Interpretation Comments G-value Rapid (test code = G-value 15.9 5.0-11.6 Rapid) [facility] Ar[id number] 05:37:00 Test Item Value Reference Range Interpretation Comments Max Amplitude Rapid (test code = Max 76 mm 52-71 Amplitude Rapid) [facility] [id number] 05:37:00 Test Item Value Reference Range Interpretation Comments R-time Rapid (test code = R-time 0.7 min 0.4-0.7 Rapid) [facility] Ar[id number] 05:37:00 Test Item Value Reference Range Interpretation Comments K-time Rapid (test code = K-time 0.8 min 0.6-2.3 Rapid) [facility] Ar[id number] 05:37:00 Test Item Value Reference Range Interpretation Comments Split Point Rapid (test code = Split 0.5 min Point Rapid) [facility] Ar[id number] 05:37:00 Test Item Value Reference Range Interpretation Comments Angle Rapid (test code = Angle 80 degrees 64-80 Rapid) [facility] Ar[id number] 05:37:00 Test Item Value Reference Range Interpretation Comments ACT (TEG) Rapid (test code = ACT (TEG) 113 s 86-118 Rapid) [facility] Ar[id number] 05:37:00 Test Item Value Reference Range Interpretation Comments Estimated % Lysis Rapid 0.0 See_Comment [Au tomated message] The (test code = Estimated syste m which generated % Lysis Rapid) this result t ransmitted reference range : <=7.5. The reference r ting was not used to int erpret this result as normal/abnormal . [facility] Ar[id number] 05:37:00 Test Item Value Reference Range Interpretation Comments WBC (test code = WBC) 16.0 3.7-10.4 [facility] Arlingt[id number] 05:37:00 Test Item Value Reference Range Interpretation Comments RBC (test code = RBC) 4.13 4.20-5.40 [facility] Ar[id number] 05:37:00 Test Item Value Reference Range Interpretation Comments RDW (test code = RDW) 12.8 11.5-14.5 [facility] Ar[id number] 05:37:00 Test Item Value Reference Range Interpretation Comments Platelet (test code = Platelet) 325 133-450 [facility] ArlingtonIrlivwsWRFSOSWCML5137-11-60 05:37:00 Test Item Value Reference Range Interpretation Comments MPV (test code = MPV) 7.8 7.4-10.4 [facility] ArlingtonRwujsacBJSSYEXENJ3357-57-00 05:37:00 Test Item Value Reference Range Interpretation Comments MCHC (test code = MCHC) 34.1 32.0-36.0 [facility] Ar[id number] 05:37:00 Test Item Value Reference Range Interpretation Comments Hgb (test code = Hgb) 12.9 12.0-16.0 [facility] ArlingtonSqkwgqlWTKFHIOZWW5875-10-67 05:37:00 Test Item Value Reference Range Interpretation Comments Hct (test code = Hct) 37.8 36.0-48.0 [facility] ArlingtonNvptrrcPXWPMDPYLT3507-63-14 05:37:00 Test Item Value Reference Range Interpretation Comments MCV (test code = MCV) 91.6 80.0-98.0 [facility] ArlingtonRdttnjcFBGHDFDBHU9655-97-50 05:37:00 Test Item Value Reference Range Interpretation Comments MCH (test code = MCH) 31.3 pg 27.0-31.0 [facility] ArlingtonQwzbsrsPYINLTFCXV3623-55-72 05:37:00 Test Item Value Reference Range Interpretation Comments Monocytes # (test code 0.6 See_Comment [Aut omated message] The = Monocytes #) system which generated this result tra nsmitted reference range : <=0.8. The reference r ting was not used to int erpret this result as normal/abnormal . [facility] ArlingtonMmxsloxBBOQZVLOQL6344-19-18 05:37:00 Test Item Value Reference Range Interpretation Comments Lymphocytes # (test code = Lymphocytes 1.0 1.0-5.5 #) [facility] ArlingtonNrnudicHUHFPHSRWE4782-85-88 05:37:00 Test Item Value Reference Range Interpretation Comments Basophils (test code = 0.1 See_Comment [Aut omated message] The Basophils) system which ge nerated this result tra nsmitted reference range : <=1.0. The reference r ting was not used to int erpret this result as normal/abnormal . [facility] ArlingtonKdnjpznUYEEUVYHDD7243-35-12 05:37:00 Test Item Value Reference Range Interpretation Comments Monocytes (test code = Monocytes) 4.1 2.0-12.0 [facility] Arlingt[id number] 05:37:00 Test Item Value Reference Range Interpretation Comments Segs-Bands # (test code = Segs-Bands #) 14.3 1.5-8.1 [facility] ArlingtonMyyiciqWRYDLIRKDC5378-10-66 05:37:00 Test Item Value Reference Range Interpretation Comments Lymphocytes (test code = Lymphocytes) 6.3 20.0-40.0 [facility] ArlingtonPplozrfCRTEKSUBXH6422-17-34 05:37:00 Test Item Value Reference Range Interpretation Comments Segs (test code = Segs) 89.5 45.0-75.0 [facility]
--- NOTE | 2022-07-25 17:15 | RAD REPORT ---
EXAM DESCRIPTION: CT - Head Brain Wo Cont - 07/25/2022 5:02 pm CLINICAL HISTORY: Dizziness, non-specific COMPARISON: <Comparisons> TECHNIQUE: All CT scans are performed using dose optimization technique as appropriate and may inclu de automated exposure control or mA/KV adjustment according to patient size. FINDINGS: No intracranial hemorrhage, hydrocephalus or extra-axial fluid collection.No areas of brai n edema or evidence of midline shift. The paranasal sinuses and mastoids are clear. The calvarium is intact. IMPRESSION: No acute intracranial abnormality.
--- NOTE | 2022-07-25 17:36 | RAD REPORT ---
EXAM DESCRIPTION: RAD - Chest Single View - 07/25/2022 5:16 pm CLINICAL HISTORY: SOB COMPARISON: Chest Single View dated 07/03/2022; Chest Single View dated 05/29/2022; Chest For Pe Angio dated 05/29/2022 FINDINGS: Lines: None. Lungs: No evidence of edema or pneumonia. Pleural: No significant pleural effusions or pneumothorax. Cardiac: The heart size is within normal limits. Mediastinum: Within normal limits. Bones: No acute fractures. Other: None IMPRESSION: No acute cardiopulmonary disease.
[2022-07-25 18:21] LABS: Urine Blood Trace-intact (Negative); Urine Glucose Negative (Negative); Urine Protein Negative (Negative); Urine Specific Gravity >=1.030 (1.005-1.030); Urine pH 5.5 (5.0-7.0)
[2022-07-25 18:33] LABS: Absolute Lymphocytes (CBC) 2.4 K/uL (0.7-4.9); Hematocrit 40.8 % (36.0-45.0); Lymphocytes % 18.2 % (15.3-44.8); MCV 88.9 fL (80-100); MPV 7.1 fL (7.6-11.3); RBC Red Blood Cell Count 4.59 M/uL (3.86-4.86)
[2022-07-25 18:37] LABS: Protime INR 1.17
[2022-07-25] MEDS ORDERED: hydrOXYzine HCL 25 MG TAB ONE (18:41)
[2022-07-25 18:53] LABS: Albumin 4.4 g/dL (3.4-5.0); Bilirubin Direct 0.1 mg/dL (0-0.2); Bilirubin Total 0.5 mg/dL (0.2-1.0); Magnesium 2.2 mg/dL (1.8-2.4); Potassium 3.4 mmol/L (3.5-5.1); Protein, Total 8.6 g/dL (6.4-8.2); Troponin High Sensitivity 3.3 pg/mL (<58.9)
--- NOTE | 2022-07-25 19:25 | RAD REPORT ---
EXAM DESCRIPTION: CT - Chest For Pe Angio - 07/25/2022 7:14 pm CLINICAL HISTORY: Chest pain, shortness of breath COMPARISON: Stone Protocol dated 2Chest For Pe Angio dated 05/29/2022hest For Pe Angio dated 05/29/2022 TECHNIQUE: Dynamically enhanced axial 3 mm thick images of the chest were obtained during administra tion of <100> mL Isovue 370 IV contrast. Coronal and oblique reconstruction images were generated and reviewed. Exam utilizes a protocol for optimal evaluation of pulmonary arterial tree. Maximum intensity projections 3D imaging was utilized All CT scans are performed using dose optimization technique as appropriate and may include automated exposure control or mA/KV adjustment according to patient size. FINDINGS: Chest Wall: No suspicious thyroid nodules or pathologic lymphadenopathy. Bilateral breast prostheses. Lungs: No acute abnormality. Pleura: No significant effusions or pneumothorax. Mediastinum/marilyn: No pathologic lymphadenopathy. Circumferentially thickened distal esophagus which m ay reflect esophagitis. Pulmonary arteries/Aorta: No filling defect identified. No aortic aneurysm. Heart: No significant pericardial effusion. Normal heart size. Upper abdomen: No acute abnormality.Hepatic steatosis. Bones: No acute abnormality. IMPRESSION: Negative for pulmonary embolism. Circumferentially thickened distal esophagus which may reflect esophagitis, similar to prior. No other acute findings identified. No significant change comp ared with 05/29/2022.
--- NOTE | 2022-07-25 19:47 | EDPHYS ---
Physician Documentation [facility] Name: Katerina Howe Age: 37 yrs Sex: Female : 1985 Arrival Date: 07/25/2022 Time: 14:01 Bed 12 Private MD: ED Physician Ismael Martin HPI: 07/25 16:41 This 37 yrs old Female presents to ER via Ambulatory with complaints of pm1 Dizziness, Shortness Of Breath, Numbness. 16:41 The patient presents with dizziness. Onset: The symptoms/episode began/occurred 3 pm1 week(s) ago. Context: occurred at an unknown location. Modifying factors: The symptoms are alleviated by nothing, the symptoms are aggravated by nothing. Associated signs and symptoms: Pertinent positives: shortness of breath, Numbness and tingling to bilateral hands and feet, Pertinent negatives: abdominal pain, chest pain. Severity of symptoms: in the emergency department the symptoms are unchanged. Patient's baseline: Neuro: alert and fully oriented, Motor: no deficits, Ambulation: walks without assistance, Speech: normal. The patient has experienced similar episodes in the past, multiple times, daily. The patient has not recently seen a physician. 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 - Social history:: Smoking status: Patient denies any tobacco usage or history of. ROS: 16:41 Constitutional: Negative for fever, chills, and weight loss. pm1 16:41 Cardiovascular: Negative for chest pain, palpitations, and edema. 16:41 Abdomen/GI: Negative for abdominal pain, nausea, vomiting, diarrhea, and constipation, Back: Negative for injury and pain, MS/Extremity: Negative for injury and deformity, Skin: Negative for injury, rash, and discoloration. 16:41 Respiratory: Positive for shortness of breath, Negative for cough, wheezing. 16:41 Neuro: Positive for dizziness, numbness or tingling to bilateral hands and feet, circumoral numbness present with numbness and tingling to feet, Negative for headache. 16:41 All other systems are negative. Exam: 16:41 Constitutional: This is a well developed, well nourished patient who is awake, alert, pm1 and in no acute distress. Head/Face: Normocephalic, atraumatic. 16:41 Back: No spinal tenderness. No costovertebral tenderness. Full range of motion. Skin: Warm, dry with normal turgor. Normal color with no rashes, no lesions, and no evidence of cellulitis. MS/ Extremity: Pulses equal, no cyanosis. Neurovascular intact. Full, normal range of motion. 16:41 Eyes: Exam is negative for acute changes, Periorbital structures: appear normal, Pupils: no acute changes, Extraocular movements: no acute changes, Conjunctiva: no acute changes, no injection. 16:41 ENT: Exam is negative for acute changes, Mouth: Lips: normal, moist, Oral mucosa: normal, pink and intact, moist. 16:41 Cardiovascular: Exam negative for acute changes, Rate: normal, Rhythm: regular, Pulses: no pulse deficits are appreciated. 16:41 Respiratory: Exam negative for acute changes, respiratory distress, shortness of breath, Breath sounds: are clear throughout. 16:41 Abdomen/GI: Exam negative for acute changes, Inspection: abdomen appears normal, Palpation: abdomen is soft and non-tender, in all quadrants. 16:41 Neuro: Exam negative for acute changes, Orientation: is normal, Mentation: is normal, Motor: is normal, moves all fours. Vital Signs: 15:52 BP 157 / 97; Pulse 86; Resp 16; Temp 97.2(TE); Pulse Ox 100% on R/A; Weight 54.43 kg; vg1 Height 5 ft. 1 in. (154.94 cm); Pain 6/10; 20:01 BP 137 / 78; Pulse 80; Resp 16; Pulse Ox 100% on R/A; Pain 5/10; bm7 15:52 Body Mass Index 22.67 (54.43 kg, 154.94 cm) vg1 MDM: 16:25 Patient medically screened. pm1 19:45 Data reviewed: vital signs. Data interpreted: Pulse oximetry: on room air is 100 %. pm1 Interpretation: normal. 19:46 Counseling: I had a detailed discussion with the patient and/or guardian regarding: the pm1 historical points, exam findings, and any diagnostic results supporting the discharge/admit diagnosis, lab results, radiology results, the need for outpatient follow up, a family practitioner, a coke oven patcher, to return to the emergency department if symptoms worsen or persist or if there are any questions or concerns that arise at home. 07/25 16:41 Order name: Basic Metabolic Panel; Complete Time: 18:54 pm1 07/25 16:41 Order name: CBC with Diff; Complete Time: 18:52 pm1 07/25 16:41 Order name: D-Dimer; Complete Time: 18:52 pm1 07/25 16:41 Order name: LFT's; Complete Time: 18:54 pm1 07/25 16:41 Order name: Magnesium; Complete Time: 18:54 pm1 07/25 16:41 Order name: NT PRO-BNP; Complete Time: 18:54 pm1 07/25 16:41 Order name: CT Head Brain wo Cont; Complete Time: 17:22 pm1 07/25 16:41 Order name: PT-INR; Complete Time: 18:52 pm1 07/25 16:41 Order name: Troponin HS; Complete Time: 18:54 pm1 07/25 16:41 Order name: XRAY Chest (1 view); Complete Time: 17:41 pm1 07/25 18:23 Order name: Urine Dipstick-Ancillary EDNV 07/25 18:53 Order name: CT Chest For PE Angio; Complete Time: 19:37 pm07/25 16:41 Order name: Urine Dipstick-Ancillary (obtain specimen); Complete Time: 18:28 pm1 07/25 16:41 Order name: Urine Test (obtain specimen); Complete Time: 18:28 pm1 07/25 16:41 Order name: EKG; Complete Time: 16:42 pm07/25 16:41 Order name: Cardiac monitoring; Complete Time: 18:57 pm07/25 16:41 Order name: EKG - Nurse/Tech; Complete Time: 18:44 pm07/25 16:41 Order name: IV Saline Lock; Complete Time: 18:28 pm1 07/25 16:41 Order name: Labs collected and sent; Complete Time: 18:28 pm1 07/25 16:41 Order name: O2 Per Protocol; Complete Time: 18:28 pm1 07/25 16:41 Order name: O2 Sat Monitoring; Complete Time: 18:57 pm1 EC:50 Rate is 75 beats/min. Rhythm is regular, Normal Sinus Rhythm with No ectopy. QRS [place] pm1 is Normal. TX interval is normal. QRS interval is normal. QT interval is normal. No Q waves. T waves are Normal. No ST changes noted. Clinical impression: Normal ECG. Administered Medications: 18:33 Drug: hydrOXYzine 50 mg Route: PO; ss 20:00 Drug: Ketorolac 30 mg Route: IVP; Site: left antecubital; bm7 20:01 Follow up: Response: No adverse reaction bm7 20:00 Drug: Reglan (metoCLOPramide) 10 mg Route: IVP; Site: left antecubital; bm7 20:16 Follow up: Response: No adverse reaction bm7 Disposition Summary: 07/25/22 19:47 Discharge Ordered Location: Home pm1 Problem: new pm1 Symptoms: have improved pm1 Condition: Stable pm1 Diagnosis - Headache pm1 - Dizziness and giddiness pm1 - Anxiety disorder, unspecified pm1 - Shortness of breath pm1 - Esophagitis, unspecified pm1 Followup: pm1 - With: Emergency Department - When: As needed - Reason: Worsening of condition Followup: pm1 - With: Private Physician - When: 2 - 3 days - Reason: Recheck today's complaints, Continuance of care, Re-evaluation by your physician Discharge Instructions: - Discharge Summary Sheet pm1 - Dizziness pm1 - Esophagitis pm1 - General Headache Without Cause pm1 - Shortness of Breath, Adult pm1 - Generalized Anxiety Disorder, Adult pm1 - Managing Anxiety, Adult pm1 Forms: - Medication Reconciliation Form pm1 - Thank You Letter pm1 - Antibiotic Education pm1 - Prescription Opioid Use pm1 Prescriptions: - Hydroxyzine HCl 25 mg Oral Tablet - take 1 tablet by ORAL route every 6 hours As needed; 30 tablet; Refills: 0, pm1 Product Selection Permitted - Pepcid 20 mg Oral Tablet - take 1 tablet by ORAL route every 12 hours for 10 days; 20 tablet; Refills: 0, pm1 Product Selection Permitted Addendum: 07/26/2022 20:32 Co-signature as Attending Physician, Ismael Martin MD. r n Signatures: Dispatcher [employer] Ismael Cedillo MD MD rn Amelie Alicea RN RN ss Joel Chandra, INSTRUMENTATION SUPERVISOR INSTRUMENTATION SUPERVISOR pm1 Mar Encinas RN RN vg1 Ilana San RN RN bm7 Corrections: (The following items were deleted from the chart) 07/25 16:02 15:57 PMHx: Hyoertension; vg1 vg1
--- NOTE | 2022-07-25 19:47 | ER ---
Nurse's Notes [facility] Name: Katerina Howe Age: 37 yrs Sex: Female : 1985 Arrival Date: 07/25/2022 Time: 14:01 Bed 12 Private MD: Diagnosis: Headache;Dizziness and giddiness;Anxiety disorder, unspecified;Shortness of breath;Esophagitis, unspecified Presentation: 07/25 15:52 Chief complaint: Patient states: dizziness that began on Saturday07-21-22; states AISHWARYA vg1 ear pressure with headache, blurred vision at times, and nausea. Also stated AISHWARYA hand and feet numbness and tingling. Coronavirus screen: Vaccine status: Patient reports receiving the 2nd dose of the covid vaccine. Client denies travel out of the [place] in the last 14 days. Ebola Screen: Patient denies exposure to infectious person. Patient denies travel to an Ebola-affected area in the 21 days before illness onset. Initial Sepsis Screen: Does the patient meet any 2 criteria? No. Patient's initial sepsis screen is negative. Does the patient have a suspected source of infection? No. Patient's initial sepsis screen is negative. Risk Assessment: Do you want to hurt yourself or someone else? Patient reports no desire to harm self or others. Onset of symptoms was July 21, 2022. 15:52 Method Of Arrival: Ambulatory vg1 15:52 Acuity: SARAH 3 vg1 Triage Assessment: 15:57 General: Appears uncomfortable, Behavior is calm, cooperative. Pain: Complains of pain vg1 in head Pain currently is 6 out of 10 on a pain scale. Neuro: Level of Consciousness is awake, alert, obeys commands, Oriented to person, place, time, situation, Pricer Bagger are equal bilaterally Moves all extremities. Gait is steady, Speech is normal, Facial symmetry appears normal, Denies dizziness, headache. Respiratory: Reports shortness of breath on exertion stated "when i walk up on down my stairs at home I get shortness of breath really fast" Onset: The symptoms/episode began/occurred x 3 days, the patient has mild shortness of breath. 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 - Social history:: Smoking status: Patient denies any tobacco usage or history of. Screenin:57 Abuse screen: Denies threats or abuse. Nutritional screening: No deficits noted. bm7 Tuberculosis screening: No symptoms or risk factors identified. Fall Risk None identified. Assessment: 18:29 General: Appears in no apparent distress. comfortable, Behavior is calm, cooperative. ss Neuro: Level of Consciousness is awake, alert, obeys commands, Oriented to person, place, time, situation. Neuro: Reports Intermittent dizziness that has been ongoing for over a year. Pt states, "I have been seen by so many people for these same complaints and nobody has figured out what is wrong with me yet.". Cardiovascular: Capillary refill < 3 seconds is brisk in bilateral fingers. Respiratory: Airway is patent Respiratory effort is even, unlabored, Respiratory pattern is regular, symmetrical. Derm: Skin is intact, is healthy with good turgor, Skin is pink, warm \\T\\ dry. normal. Musculoskeletal: Range of motion: intact in all extremities. 18:57 Reassessment: No changes from previously documented assessment. Patient and/or family bm7 updated on plan of care and expected duration. Pain level reassessed. Patient is alert, oriented x 3, equal unlabored respirations, skin warm/dry/pink. Vital Signs: 15:52 BP 157 / 97; Pulse 86; Resp 16; Temp 97.2(TE); Pulse Ox 100% on R/A; Weight 54.43 kg; vg1 Height 5 ft. 1 in. (154.94 cm); Pain 6/10; 20:01 BP 137 / 78; Pulse 80; Resp 16; Pulse Ox 100% on R/A; Pain 5/10; bm7 15:52 Body Mass Index 22.67 (54.43 kg, 154.94 cm) vg1 ED Course: 14:01 Patient arrived in ED. mr 15:57 Triage completed. vg1 15:57 Arm band placed on. vg1 16:15 Joel Chandra NP is [facility]. pm1 16:15 Ismael Martin MD is Attending Physician. pm1 17:03 CT Head Brain wo Cont In Process Unspecified. EDMS 17:18 XRAY Chest (1 view) In Process Unspecified. EDMS 18:28 Inserted saline lock: 22 gauge in right antecubital area, using aseptic technique. ss Blood collected. 18:56 Ilana San, RADHA is Primary Nurse. bm7 18:57 No apparent distress. Resting quietly. Awaiting lab results. bm7 18:57 Patient has correct armband on for positive identification. Placed in gown. Bed in low bm7 position. Call light in reach. Side rails up X 1. Client placed on continuous cardiac and pulse oximetry monitoring. NIBP monitoring applied. groundwater monitoring technician on. Warm blanket given. 18:57 No provider procedures requiring assistance completed. Patient maintains SpO2 bm7 saturation greater than 95% on room air. 19:[address] bm7 19:16 CT Chest For PE Angio In Process Unspecified. EDMS 20:15 IV discontinued, intact, bleeding controlled, No redness/swelling at site. Pressure bm7 dressing applied. Administered Medications: 18:33 Drug: hydrOXYzine 50 mg Route: PO; ss 20:00 Drug: Ketorolac 30 mg Route: IVP; Site: left antecubital; bm7 20:01 Follow up: Response: No adverse reaction bm7 20:00 Drug: Reglan (metoCLOPramide) 10 mg Route: IVP; Site: left antecubital; bm7 20:16 Follow up: Response: No adverse reaction bm7 Medication: 18:57 VIS not applicable for this client. bm7 Outcome: 19:47 Discharge ordered by . pm1 20:16 Discharged to home ambulatory. bm7 20:16 Condition: good 20:16 Discharge instructions given to patient, family, Instructed on discharge instructions, follow up and referral plans. medication usage, Demonstrated understanding of instructions, follow-up care, Prescriptions given X 2. 20:17 Patient left the ED. bm7 Signatures: Dispatcher [employer] EDDC Mariah Howe mr Amelie Alicea, RADHA RN Joel Chandra, [employer] pm1 Mar Encinas RN RN 1 Ilana San RN RN bm7 Corrections: (The following items were deleted from the chart) 16 15:57 PMHx: Hyoertension; vg1 vg1
[2022-07-25] MEDS ORDERED: METOCLOPRAMIDE 10 MG/2mL INJ ONE (20:03)
[2022-07-25] MEDS ORDERED: KETOROLAC 30 MG/ML INJ ONE (20:04)
[2022-07-25] MEDS ORDERED: NA CHLORIDE 0.9% 100 ML ONE (20:04)
--- NOTE | 2022-07-26 13:36 | EKG ---
Test Date: 2022-07-25 Test Time: 18:45:06 Route Clerk: CHIDI MEASUREMENT RESULTS: Intervals: Rate: 75 [place]: 118 QRSD: 78 QT: 384 QTc: 428 [place]: P: 61 [place]: 118 QRS: 76 T: 61 INTERPRETIVE STATEMENTS: Normal sinus rhythm Normal ECG Compared to ECG 07/03/2022 20:25:40 No significant changes Electronically Signed On 07-26-22 13:34:38 CDT by Calvin Knapp
[2022-07-26 16:09] VITALS: BP 157/97; TEMP 97.2; O2SAT 100
== END 2022-07-25 20:17 | disposition home or self-care (01) ==
LOC: ER 13:58
DX: R42 Dizziness and giddiness (principal); R51.9 Headache, unspecified; R06.02 Shortness of breath; F41.9 Anxiety disorder, unspecified; K20.90 Esophagitis, unspecified without bleeding; I10 Essential (primary) hypertension
CPT/HCPCS: 36415; 70450; 71045; 71275; 80048; 80076; 81003; 83735; 83880; 84484; 85025; 85379; 85610; 93005; 96374; 96375; 99285; J2765; Q9967

== ENCOUNTER 2023-06-10 11:05 | Emergency (ER) | payer SELFPAY ==
[2023-06-10 11:43] LABS: Specific Gravity < 1.005 (1.005-1.030)
[2023-06-10 11:44] LABS: Hematocrit 43.7 % (36.0-45.0); Lymphocytes % 29.2 % (15.3-44.8); MCV 91.4 fL (80-100); MPV 7.4 fL (7.6-11.3); RBC Red Blood Cell Count 4.78 M/uL (3.86-4.86)
[2023-06-10 11:45] LABS: Specific Gravity < 1.005 (1.005-1.030); Urine Bacteria None Seen /HPF (<20); Urine Bilirubin NEGATIVE (Negative); Urine Blood Negative (Negative); Urine Clarity Turbid (Clear); Urine Color Colorless (Yellow); Urine Glucose NEGATIVE (Negative); Urine Protein NEGATIVE (Negative); Urine RBC <5 /HPF (None Seen); Urine Urobilinogen Normal (Normal)
--- OUTSIDE RECORDS SUMMARY | 2023-06-10 11:45 | XMS REPORT | Continuity of Care Document ---
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 2022-06-01 14:11:00 22.35 kg/m2 [facility] Systolic blood 2022-05-07 14:12:00 121 mm[Hg] [facility] Diastolic blood 2022-05-07 14:12:00 81 mm[Hg] [facility] Heart rate 2022-05-07 14:12:00 79 /min [facility] Respiratory rate 2022-05-07 14:12:00 18 /min [facility] Body height 2022-05-07 14:12:00 154.9 cm [facility] Body weight 2022-05-07 14:12:00 54.205 kg [facility] BMI 2022-05-07 14:12:00 22.58 kg/m2 [facility] Heart Rate 2016-07-31 12:20:00 [facility] Systolic (mm Hg) 2016-07-31 12:20:00 Melvin [facility] Diastolic (mm Hg) 2016-07-31 12:20:00 [facility] Temperature Oral (F) 2016-07-31 12:20:00 98.2 F [facility] Systolic (mm Hg) 2016-07-31 09:00:00 [facility] Diastolic (mm Hg) 2016-07-31 09:00:00 [facility] Heart Rate 2016-07-31 09:00:00 [facility] Temperature Oral (F) 2016-07-31 09:00:00 98.4 F [facility] Systolic (mm Hg) 2016-07-31 05:22:00 [facility] Diastolic (mm Hg) 2016-07-31 05:22:00 [facility] [place] Temperature Oral (F) 2016-07-31 05:22:00 98.2 F [facility] Heart Rate 2016-07-31 05:22:00 [facility] Respitory Rate 2016-07-30 20:03:00 [facility] Respitory Rate 2016-07-30 17:18:00 [facility] [place] Respitory Rate 2016-07-30 16:41:00 [facility] [place] Weight 2016-07-30 09:21:00 [facility] BMI Calculated 2016-07-30 09:21:00 [facility] Height 2016-07-30 09:21:00 154.94 cm [facility] Weight 2016-07-30 05:38:00 [facility] Height 2016-07-30 05:38:00 154.94 cm [facility] BMI Calculated 2016-07-30 05:38:00 [facility] Procedures Procedure Date / Time Performing Clinician Source Performed POCT TEST 2022-12-07 20:33:00 Sherry Martínez [facility] POCT TEST 2022-11-16 16:02:00 Sherry Martínez Uni [facility] POCT TEST 2022-11-02 16:12:00 Sherry Martínez [facility] URINE CULTURE 2022-06-01 14:29:00 Sherry Martínez [facility] ity [facility] GARDASIL 9 (HPV 9V) 2022-06-01 14:00:26 Sherry Martínez [facility] Breast 2016-06-22 05:00:00 Kenzie andrade augmentation<sup>1</sup> Cholecystectomy Kenzie Chopra Encounters Start End Encounter Admission Attending Care Care Encounter Source Date/Time Date/Time Type Type Clinicians Facility Department ID 2020-11-25 Inpatient [facility] ER [id number] [facility] 12:29:00 11 [facility] 2023-03-11 2023-03-11 [facility] [id number] Univers 13:00:00 13:00:00 SHERRY aguilar [facility] 2023-02-14 2023-02-14 Outpatient R [facility] [id number] Univers 10:00:00 10:00:00 [facility] 2022-12-07 2022-12-07 Outpatient R MAURICIO [facility] [id number] Univers 13:30:00 14:30:59 SHERRY gross [facility] 2022-12-07 2022-12-07 Office Mauricio [facility] [id number] Univers 13:30:00 14:30:59 Visit Sherry Ratliff [facility].10 [facility] 4.2.7.2.686 [place] as MATERNAL [id number] [facility] ical & CHILD [address] [place] [address] 2022-12-07 2022-12-07 Telephone Mauricio HIELVIN 1.2.840.114 [id number] Univers 00:00:00 00:00:00 Sherry Ratliff SPECIALTY MOLDER 350.1.13.10 ity of REGIONAL 4.2.7.2.686 [place] as MATERNAL [phone] [facility] & CHILD [address] [place] [address] 2022-11-16 2022-11-16 Nurse Visit, Imer Nurse [facility] 1.2 .840.114 [id number] Univers 10:00:00 10:20:45 Visit Rayjuliet Sherry Ratliff SPECIALTY MOLDER 350.1.13. 10 ity of REGIONAL 4.2.7.2.686 [place] as MATERNAL [phone] [facility] [address] [place] [address] 2022-11-16 2022-11-16 [facility] [id number] Univers 10:00:00 10:00:00 SHERRY gross [facility] 2022-11-02 2022-11-02 [facility] 1.2 .840.114 [id number] [facility] 10:00:00 10:14:37 Visit Raymichaeljose Sherry Ratliff SPECIALTY MOLDER 350.1.13. 10 ity of REGIONAL 4.2.7.2.686 [place] as MATERNAL [phone] [address] 2022-11-02 2022-11-02 [facility] [id number] Univers 10:00:00 10:00:00 SHERRY gross [facility] 2022-10-31 2022-10-[address] [facility] 1.2.840.114 [id number] Univers 00:00:00 00:00:00 Sherry Ratliff SPECIALTY MOLDER 350.1.13.10 ity of REGIONAL 4.2.7.2.686 [place] as MATERNAL [phone] [facility] & [address] 2022-09-14 2022-09-14 [facility] [id number] Univers 10:00:00 10:00:00 SHERRY gross [facility] 2022-09-06 2022-09-06 Outpatient R KAVEH [facility] [id number] Univers 10:00:00 10:00:00 RADHAMES ezen aguilar [facility] 2022-09-06 2022-09-06 Outpatient R KAVEH [facility] [id number] Univers 09:30:00 09:30:00 RADHAMES aguilar [facility] 2022-08-24 2022-08-24 Outpatient R [facility] [id number] Univers 10:00:00 10:00:[facility] 2022-07-26 2022-07-26 Outpatient R KAVEH [facility] [id number] Univers 10:30:00 10:30:00 RADHAMES aguilar [facility] 2022 2022 Outpatient R KAVEH [facility] [id number] Univers 08:30:00 08:30:00 RADHAMES ezen jeff [facility] 2022-06-18 2022-06-18 Outpatient Savanah MARTÍNEZ [facility] [id number] Univers 12:45:00 12:45:00 SHERRY aguilar [facility] 2022-06-05 2022-06-05 Outpatient RAINE_LAURA [facility] [id number] [place] 09:33:00 09:33:00 _ANN 0726 da [facility] Program 2022-06-01 2022-06-01 Nurse Visit, Ang-Rmchp Nurse [facility] 1.2 .840.114 [id number] Univers 09:00:00 09:26:44 Visit Sherry Martínez SPECIALTY MOLDER 350.1.13. 10 ity [facility] 4.2.7.2.686 [place] as MATERNAL [phone] Med ical & CHILD [address] [place] [address] 2022-06-01 2022-06-01 Outpatient Savanah MARTÍNEZ [facility] [id number] Univers 09:00:00 09:00:00 SHERRY aguilar [facility] 2022-05-08 2022-05-08 Outpatient Savanah LOOMIS [facility] [id number] Univers 16:00:00 16:00:00 SENDGEOFF wang [facility] 2022-05-08 2022-05-08 [facility] [id number] Univers 16:00:00 16:00:00 SENDIL ity [facility] 2022-05-07 2022-05-07 [facility] [id number] Univers 09:00:00 09:46:48 SENDIL ity [facility] 2022-05-07 2022-05-07 [facility] 1.2.840.114 [id number] Univers 09:00:00 09:46:48 Visit Sendil Tayla BRIDGES 350.1.13.10 ity [facility] [place]2.7.2.[place] [id number] [address] 2022-05-07 2022-05-07 [facility] [id number] Univers 09:00:00 09:46:48 SENDIL ity [facility] 2022-05-07 2022-05-07 Letter [facility] 1.2.840.114 [id number] Univers 00:00:00 00:00:00 (Out) Sendpa Tayla BRIDGES 350.1.13.10 ity [facility] [place] [id number] [address] 2022-04-21 2022-04-21 Outpatient R CATIE [facility] [id number] Univers 12:00:00 12:00:00 VAZQUEZ wang o f [facility] 2022-03-23 2022-03-[address] [facility] 1.2.840.114 [id number] Univers 00:00:00 00:00:00 Sherry C SPECIALTY MOLDER 350.1.13.10 ity [facility] 4.2.7.2.686 [place] as MATERNAL [id number] [facility] ical & CHILD [address] [place] [address] 2022-03-14 2022-03-[address] [facility] 1.2.840.114 [id number] Univers 00:00:00 00:00:00 Sherry C SPECIALTY MOLDER 350.1.13.10 ity of [facility] 4.2.7.2.686 [place] as MATERNAL [phone] [facility] & CHILD [address] [place] [address] 2022-03-09 2022-03-09 Office Mauricio [facility] [id number] [id number] Univers 13:15:00 14:30:31 Visit Sherry Ratliff SPECIALTY MOLDER 350.1.13.10 ity of [facility] 4.2.7.2.686 [place] as MATERNAL [id number] [facility] & CHILD [address] [place] [address] 2022-03-09 2022-03-09 Outpatient R AKINSIPE, [facility] [id number] Univers 13:15:00 14:30:31 SHERRY ezy o [facility] 2022-03-09 2022-03-09 Outpatient R AKINSIPE, [facility] [id number] Univers 13:15:00 14:30:31 SHERRY ezy o [facility] 2022-03-09 2022-03-09 Outpatient R AKINPE, [facility] [id number] Univers 13:15:00 13:15:00 [facility] ezy o [facility] 2022-03-09 2022-03-09 Orders Doctor SOCORRO 1.2.840.114 [id number] Univers 00:00:00 00:00:00 Only Unassigned, VIKAS 350.1.13.10 ity of [place] [facility] 4.2.7.2.686 [place] as [phone] [address] 2021-12-07 2021-12-07 Emergency EM Hopper, [facility] ER [id number] [facility] 02:58:00 05:45:00 Celestine 71 [facility] 2020-09-28 2020-09-28 Outpatient Shield MMG MMG [id number] [place] 00:00:00 00:00:00 1118 [facility] 2020-02-26 2020-02-26 Outpatient R [facility] [id number] Univers 09:00:00 09:00:00 ity of [facility] 2019-12-07 2019-12-07 Patient Doctor ERIC 1.2.840.114 [id number] Univers 00:00:00 00:00:00 Secure Msg Unassigned, SPECIALTY MOLDER 350.1.13.10 ity of [place] [facility] 4.2.7.2.686 [place] as MATERNAL [phone] Med ical & CHILD [address] [place] [address] 2019-12-07 2019-12-07 Patient Doctor [facility] 1.2.840.114 [id number] 00:00:00 00:00:00 Secure Msg Unassigned, SPECIALTY MOLDER 350.1.13.10 [place] [facility] 4.2.7.2.686 MATERNAL [phone] & CHILD [address] [place] [address] 2019-12-04 2019-12-04 Office Richi [facility] [id number] [facility] 13:50:47 14:54:38 Visit Vianca Landa SPECIALTY MOLDER 350.1.13.10 it y of [facility] 4.2.7.2.686 [place] as MATERNAL [id number] [facility] ical & CHILD [address] [place] [address] 2019-12-04 2019-12-04 Office Richi [facility] [id number] 13:50:47 14:54:38 Visit Vianca Landa SPECIALTY MOLDER 350.1.13.10 [facility] 42.7.2.686 MATERNAL [id number] & CHILD [address] [place] [address] 2019-06-18 2019-06-18 Nurse Visit, Enrrique-Rmchp Nurse [facility] 1.2 .840.114 [id number] [facility] 16:09:26 16:37:47 Visit Sherry Martínez SPECIALTY MOLDER 350.1.13. 10 ity of [facility] 42.7.2.686 [place] as MATERNAL [id number] [facility] ical & CHILD [address] [place] [address] 2019-06-18 2019-06-18 Orders Doctor SOCORRO 1.2.840.114 [id number] Univers 00:00:00 00:00:00 Only Unassigned, VIKAS 350.1.13.10 ity of [place] [facility] 42.7.2.686 [place] as [phone] [address] 2016-07-30 2016-07-31 Inpatient [facility] [id number] Memoria 05:23:00 15:36:[address] 2016-07-30 2016-07-31 Inpatient [facility] [id number] Memoria 05:23:00 15:36:[address] 2016-07-30 2016-07-31 Outpatient Abundio [facility] [id number] 00:23:00 10:36:00 Dianna Cassidy Joselin Results Test Description Test Time Test Comments Results Result Comments Source POCT TEST 2022-12-07 20:33:00 Test Item Value Reference Range Interpretation Comme nts POCT PREG (test code = 1605) Negative On board controls acceptable with C Line (test code = 3574) Yes POCT PREG LOT # (test code = 3575) POCT PREG TEST DATE (test code = 3576) [id number] 20:33:00 Test Item Value Reference Range Interpretation Comments POCT PREG (test code = 1605) Negative On board controls acceptable with C Yes Line (test code = 3574) POCT PREG LOT # (test code = 3575) POCT PREG TEST DATE (test code = 3576) [facility] [id number] 16:03:00 Test Item Value Reference Range Interpretation Comments POCT PREG (test code = 1605) Negative On board controls acceptable with C Yes Line (test code = 3574) POCT PREG LOT # (test code = 3575) POCT PREG TEST DATE (test code = 3576) [facility] [id number] 16:12:00 Test Item Value Reference Range Interpretation Comments POCT PREG (test code = 1605) Negative On board controls acceptable with C Yes Line (test code = 3574) POCT PREG LOT # (test code = 3575) POCT PREG TEST DATE (test code = 3576) [facility]- CTA [id number] 05:11:00 [facility] CENTERName: AUDI CELAYA DOB: 1985 Sex: F Patient Name: AUDI CELAYA Unit No: [id number] EXAMS: CPT CODE: [id number] CTA NECK 92558 Reason: LEFT SIDED NUMBNESS RULE OUT CVA [...] of iterative reconstruction technique. COMPARISON: Noncontrast head C T acquired earlier today. FINDINGS: CTA NECK: Any reported ICA stenosis directly references the distal internal carotid artery diameter as the denominator for stenosis measurement (NASCET criteria). AORTIC ARCH: The nondominant left vertebral artery arising the posterior aspect of the aortic arch. Theorigins of great vessels are widely patent.. RIGHT CAROTID ARTERIES: No dissection, stenosis or atherosclerotic plaque demonstrated in the common carotid artery or internal carotid artery. LEFT CAROTIDARTERIES: No dissection, stenosis or atherosclerotic plaque demonstrated [...] without evidence of stenosis, vasospasm or aneurysm. [place] FSED NAME: AUDI CELAYA [facility] [address] PHYS: Celestine Landaverde DO [address] : 1985 AGE: 36 SEX: F [place], [place] [address] LOC: D.PER PHONE #: [phone] EXAM DATE: 12/07/2021 STATUS: REG ER FAX #: RAD NO: DC Dt: PAGE 1 Signed Report (CONTINUED) Patient Name: AUDI CELAYA Unit No: [id number] EXAMS: CPT CODE: [id number] CTA NECK 54979 (Continued) Reason: LEFT SIDEDNUMBNESS RULE OUT CVA VERTEBRAL AND BASILAR ARTERIES: [...] Technologist: Shagufta Sawant RT CT Trscrpt Dt/ (0511)t.SDR.TH15 Orig Print D/T: S: 12/07/2021 (0514) CTDI: DLP: [place] FSED NAME: AUDI CELAYA [facility] [address] PHYS: Celestine Landaverde DO [address] : 1985 AGE: 36 SEX: F [place], [place] [address] LOC: D.PER PHONE #: [phone] EXAM DATE: 12/07/2021 STATUS: REG ER FAX #: RAD NO: DC Dt: PAGE 2 Signed Report- CTA [id number] 05:11:00 [facility] : 1985 Sex: F Patient Name: AUDI CELAYA Unit No: [id number] EXAMS: CPT CODE: [id number] CTA HEAD 06512 Reason: LEFT SIDED NUMBNESS RULE OUT CVA [...] as the denominator for stenosis measurement (NASCET criteria).AORTIC ARCH: The nondominant left vertebral artery arising [...] Right vertebral artery is dominant and is widelypatent. The left vertebral artery is nondominant and [...] without evidence of stenosis, vasospasm or aneurysm. [place] FSED N SHELLY: AUDI CELAYA [address] PHYS: Celestine Landaverde DO [address] : 1985 AGE: 36 SEX: F [place], [place] [address] LOC: D.PER PHONE #: [phone] EXAM DATE:12/07/2021 STATUS: REG ER FAX #: RAD NO: DC Dt: PAGE 1 Signed Report (CONTINUED) Patient Name: AUDI CELAYA Unit No: [id number] EXAMS: CPT CODE: [id number] CTA HEAD 31309 (Continued) Reason: LEFT SIDEDNUMBNESS RULE OUT CVA VERTEBRAL AND BASILAR ARTERIES: [...] Technologist: Shagufta Sawant RT CT Trscrpt Dt/ (0511)t.SDR.TH15 Orig Print D/T: S: 12/07/2021 (0514) CTDI: DLP: [place] FSED NAME: AUDI CELAYA [facility] [address] PHYS: Celestine Landaverde DO [address] : 1985 AGE: 36 SEX: F [place], [place] [address] LOC: D.PER PHONE #: [phone] EXAM DATE: 12/07/2021 STATUS: REG ER FAX #: RAD NO: DC Dt: PAGE 2 Signed ReportCOMPREHENSIVE METABOLIC [id number] 03:57:00 Test Item Value Reference Range Interpretation Comments SODIUM (test code = 141 MMOL/L 133-145 N NA) POTASSIUM (test code = 3.8 MMOL/L 3.6-5.2 N K) CHLORIDE (test code = 103 MMOL/L 100-108 N CL) CARBON DIOXIDE (test 27 MMOL/L 22-32 N code = CO2) GLUCOSE (test code = 99 MG/DL 65-99 N Results of this assay GLU) method may be f alsely depressed orele vated if patient is t aking sulfasalazine. BLOOD UREA NITROGEN 13 MG/DL 6-20 N (test code = BUN) GLOMERULAR FILTRATION 91 64-149 N Report ing units: RATE (test code = GFR) mL/mi n/1.73m\\S\\2 (Modified MDRD Formula) CREATININE (test code 0.72 MG/DL 0.60-1.00 N = CREAT) TOTAL PROTEIN (test 8.0 G/DL 6.4-8.2 N code = PROT) ALBUMIN (test code = 4.0 G/DL 3.4-5.0 N ALB) GLOBULIN (test code = 4.0 G/DL 1.5-3.8 H GLOB) ALBUMIN/GLOBULIN RATIO 1.0 1.1-2.2 L (test code = A/G) CALCIUM (test code = 9.0 MG/DL 8.7-10.5 N CA) BILIRUBIN TOTAL (test 0.4 MG/DL 0.0-1.0 N code = BILT) SGOT/AST (test code = 15 Units/L 15-37 N Result s of this assay AST) method may be f alsely depressed orele vated if patient is t aking sulfasalazine. SGPT/ALT (test code = 15 Units/L 30-65 L Result s of this assay ALT) method may be f alsely depressed orele vated if patient is t aking sulfasalazine. ALKALINE PHOSPHATASE 55 Units/L 50-136 N TOTAL (test code = ALKP) TROP-I HIGH [id number] 03:57:00 Test Item Value Reference Range Interpretation [...] taking high doses of Biotin. HCG SERUM [id number] 03:46:00 Test Item Value Reference Range Interpretation [...] using aquantitative h CG assay. CBC W/AUTO [id number] 03:38:00 Test Item Value Reference Range Interpretation [...] 3/uL 0.0-0.2 N - CT HEAD/BRAIN W/O [id number] 03:27:00 [facility] : 1985 Sex: F Patient Name: AUDI CELAYA Unit No: [id number] EXAMS: CPT CODE: [id number] CT HEAD/BRAIN W/O CONT 09734 Reason: LEFT SIDE NUMB Exam: CT head without contrast. Location: H 12 History: LEFT SIDE NUMB Technique: Unenhanced spiral slices were taken from the base of the skull, through the vertex. One or more ofthe following dose reduction techniques were used: Automated exposure control, adjustment of the mA and/or kV according to patient size, and/or utilization of iterative reconstruction technique. Findings: No acute intracranial abnormality is identified. The brain parenchyma and the CSF spaces are within normal limits for age. No mass, midline shift, hemorrhage, edema or hydrocephalus is seen. The visualized paranasal sinuses are clear. The mastoid air cells are well pneumatized. The bony calvarium is intact. Impression: 1. No acute intracranial abnormality. 2. Unremarkable exam. at 0327 Reported and signed by: Parrish High MD CC: Celestine Calderon DO Technologist: Shagufta Sawant RT CT Trscrpt Dt/ (0327)MiriamFC Orig Print D/T: S: 12/07/2021 (0330) CTDI: DLP: [place] FSED NAME: AUDI CELAYA [facility] [address] PHYS: Celestine Landaverde DO [address] : 1985 AGE: 36 SEX: F [place] [address] LOC: D.PER PHONE #: [phone] EXAM DATE: 12/07/2021 STATUS: PRE ER FAX #: RAD NO: DC Dt: PAGE 1 Signed ReportCARDIAC ENZYMES 2016-07-30 10:25:00 Test Item Value Reference Range Interpretation Comments CK MB (test code = CK MB) 0.7 0.5-3.6 [facility] ArtsyCARSafetyWebAC [id number] 10:25:00 Test Item Value Reference Range Interpretation Comments CK MB Index (test 0.7 See_Comment [Automate d message] The code = CK MB Index) system w [facility] generated this result transmit jimmie reference range : <=2.5. The reference range was not used to interpr et this result as linette l/abnormal. [facility] [employer] [id number] 10:25:00 Test Item Value Reference Range Interpretation Comments Troponin-I (test code no gt See_Comment [Auto mated message] The = Troponin-I) system which g enerated this result transmit jimmie reference range : <=0.40. The reference r ting was not used to interpr et this result as linette l/abnormal. [facility] [employer] [id number] 10:25:00 Test Item Value Reference Range Interpretation Comments Troponin-T (test code no gt See_Comment [Auto mated message] The = Troponin-T) system which g enerated this result transmit jimmie reference range : <=0.100. The reference r ting was not used to interpr et this result as linette l/abnormal. [facility] Combined PowerAC [id number] 10:25:00 Test Item Value Reference Range Interpretation Comments Total CK (test code = Total CK) 94 12-191 [facility]eneration [id number] 10:25:00 Test Item Value Reference Range Interpretation Comments Phosphorus (test code = Phosphorus) 3.4 2.5-4.5 [facility] [id number] 10:25:00 Test Item Value Reference Range Interpretation Comments Magnesium Lvl (test code = Magnesium 2.1 1.8-2.4 Lvl) [facility] HospitalRapid Micro BiosystemsPARATHYROID [id number] 10:25:00 Test Item Value Reference Range Interpretation Comments Ca Ion WB (test code = Ca Ion WB) 1.02 1.05-1.25 [facility] ArtsyPARATHYROID [id number] 10:25:00 Test Item Value Reference Range Interpretation Comments Ca Norm WB (test code = Ca Norm WB) 1.00 1.05-1.25 [facility] HospitalRapid Micro BiosystemsCARSafetyWebAC [id number] 10:25:00 Test Item Value Reference Range Interpretation Comments CK MB (test code = CK MB) 0.7 0.5-3.6 [facility] [id number] 10:25:00 Test Item Value Reference Range Interpretation Comments CK MB Index (test 0.7 See_Comment [Automate d message] The code = CK MB Index) system w [facility] generated this result transmit jimmie reference range : <=2.5. The reference range was not used to interpr et this result as linette l/abnormal. [facility] SEC Watch2016-09-19 10:25:00 Test Item Value Reference Range Interpretation Comments Troponin-I (test code no gt See_Comment [Auto mated message] The = Troponin-I) system which g enerated this result transmit jimmie reference range : <=0.40. The reference r ting was not used to interpr et this result as linette l/abnormal. [facility] SEC Watch2016-09-19 10:25:00 Test Item Value Reference Range Interpretation Comments Troponin-T (test code no gt See_Comment [Auto mated message] The = Troponin-T) system which g enerated this result transmit jimmie reference range : <=0.100. The reference r ting was not used to interpr et this result as linette l/abnormal. [facility] SEC Watch2016-09-19 10:25:00 Test Item Value Reference Range Interpretation Comments Total CK (test code = Total CK) 94 12-191 [facility] Soft Tissue Regeneration [id number] 10:25:00 Test Item Value Reference Range Interpretation Comments Phosphorus (test code = Phosphorus) 3.4 2.5-4.5 [facility] [id number] 10:25:00 Test Item Value Reference Range Interpretation Comments Magnesium Lvl (test code = Magnesium 2.1 1.8-2.4 Lvl) [facility] HospitalannPARATHYROID [id number] 10:25:00 Test Item Value Reference Range Interpretation Comments Ca Ion WB (test code = Ca Ion WB) 1.02 1.05-1.25 [facility] [id number] 10:25:00 Test Item Value Reference Range Interpretation Comments Ca Norm WB (test code = Ca Norm WB) 1.00 1.05-1.25 [facility]CARD[facility] [id number] 10:25:00 Test Item Value Reference Range Interpretation Comments CK MB (test code = CK MB) 0.7 0.5-3.6 [facility]annCARDIAC [id number] 10:25:00 Test Item Value Reference Range Interpretation Comments CK MB Index (test 0.7 See_Comment [Automate d message] The code = CK MB Index) system w [facility] generated this result transmit jimmie reference range : <=2.5. The reference range was not used to interpr et this result as linette l/abnormal. [facility] HospitalRapid Micro BiosystemsCARSafetyWebAC [id number] 10:25:00 Test Item Value Reference Range Interpretation Comments Troponin-I (test code no gt See_Comment [Auto mated message] The = Troponin-I) system which g enerated this result transmit jimmie reference range : <=0.40. The reference r ting was not used to interpr et this result as linette l/abnormal. [facility] SyntricityannCARSafetyWebAC [id number] 10:25:00 Test Item Value Reference Range Interpretation Comments Troponin-T (test code no gt See_Comment [Auto mated message] The = Troponin-T) system which g enerated this result transmit jimmie reference range : <=0.100. The reference r ting was not used to interpr et this result as linette l/abnormal. [facility] ArtsyCARDIAC [id number] 10:25:00 Test Item Value Reference Range Interpretation Comments Total CK (test code = Total CK) 94 12-191 [facility]annCHEM [id number] 10:25:00 Test Item Value Reference Range Interpretation Comments Phosphorus (test code = Phosphorus) 3.4 2.5-4.5 [facility] [id number] 10:25:00 Test Item Value Reference Range Interpretation Comments Magnesium Lvl (test code = Magnesium 2.1 1.8-2.4 Lvl) [facility] HospitalannPARATHYROID [id number] 10:25:00 Test Item Value Reference Range Interpretation Comments Ca Ion WB (test code = Ca Ion WB) 1.02 1.05-1.25 [facility] HospitalannPARATHYROID [id number] 10:25:00 Test Item Value Reference Range Interpretation Comments Ca Norm WB (test code = Ca Norm WB) 1.00 1.05-1.25 [facility]annCARD[facility]AC [id number] 10:25:00 Test Item Value Reference Range Interpretation Comments CK MB (test code = CK MB) 0.7 0.5-3.6 [facility] HospitalannCARSafetyWebAC [id number] 10:25:00 Test Item Value Reference Range Interpretation Comments CK MB Index (test 0.7 See_Comment [Automate d message] The code = CK MB Index) system w [facility] generated this result transmit jimmie reference range : <=2.5. The reference range was not used to interpr et this result as linette l/abnormal. [facility] SEC Watch2016-09-19 10:25:00 Test Item Value Reference Range Interpretation Comments Troponin-I (test code no gt See_Comment [Auto mated message] The = Troponin-I) system which g enerated this result transmit jimmie reference range : <=0.40. The reference r ting was not used to interpr et this result as linette l/abnormal. [facility] Combined PowerAC [id number] 10:25:00 Test Item Value Reference Range Interpretation Comments Troponin-T (test code no gt See_Comment [Auto mated message] The = Troponin-T) system which g enerated this result transmit jimmie reference range : <=0.100. The reference r ting was not used to interpr et this result as linette l/abnormal. [facility] [employer] [id number] 10:25:00 Test Item Value Reference Range Interpretation Comments Total CK (test code = Total CK) 94 12-191 [facility]annCHE[facility] [id number] 10:25:00 Test Item Value Reference Range Interpretation Comments Phosphorus (test code = Phosphorus) 3.4 2.5-4.5 [facility] [id number] 10:25:00 Test Item Value Reference Range Interpretation Comments Magnesium Lvl (test code = Magnesium 2.1 1.8-2.4 Lvl) [facility]annPARATHYROID [id number] 10:25:00 Test Item Value Reference Range Interpretation Comments Ca Ion WB (test code = Ca Ion WB) 1.02 1.05-1.25 [facility] SyntricityannPARATHYROID [id number] 10:25:00 Test Item Value Reference Range Interpretation Comments Ca Norm WB (test code = Ca Norm WB) 1.00 1.05-1.25 [facility] SyntricityannCARSafetyWebAC [id number] 10:25:00 Test Item Value Reference Range Interpretation Comments CK MB (test code = CK MB) 0.7 0.5-3.6 [facility] HospitalannCARSafetyWebAC [id number] 10:25:00 Test Item Value Reference Range Interpretation Comments CK MB Index (test 0.7 See_Comment [Automate d message] The code = CK MB Index) system w [facility] generated this result transmit jimmie reference range : <=2.5. The reference range was not used to interpr et this result as linette l/abnormal. [facility] SEC Watch2016-09-19 10:25:00 Test Item Value Reference Range Interpretation Comments Troponin-I (test code no gt See_Comment [Auto mated message] The = Troponin-I) system which g enerated this result transmit jimmie reference range : <=0.40. The reference r ting was not used to interpr et this result as linette l/abnormal. [facility] SEC Watch2016-09-19 10:25:00 Test Item Value Reference Range Interpretation Comments Troponin-T (test code no gt See_Comment [Auto mated message] The = Troponin-T) system which g enerated this result transmit jimmie reference range : <=0.100. The reference r ting was not used to interpr et this result as linette l/abnormal. [facility] [id number] 10:25:00 Test Item Value Reference Range Interpretation Comments Total CK (test code = Total CK) 94 12-191 [facility]annCHE[facility] [id number] 10:25:00 Test Item Value Reference Range Interpretation Comments Phosphorus (test code = Phosphorus) 3.4 2.5-4.5 [facility] [id number] 10:25:00 Test Item Value Reference Range Interpretation Comments Magnesium Lvl (test code = Magnesium 2.1 1.8-2.4 Lvl) [facility]annPARATHYROID [id number] 10:25:00 Test Item Value Reference Range Interpretation Comments Ca Ion WB (test code = Ca Ion WB) 1.02 1.05-1.25 [facility] HermannPARATHYROID [id number] 10:25:00 Test Item Value Reference Range Interpretation Comments Ca Norm WB (test code = Ca Norm WB) 1.00 1.05-1.[address] [facility] Cen[id number] 05:37:00 Test Item Value Reference Range Interpretation Comments S Preg (test code = S Negative (07/30/16 12:37 Preg) AM) [facility] CenterKhhpepkBHURFEQPHU3626-94-52 05:37:00 Test Item Value Reference Range Interpretation Comments G-value Rapid (test code = G-value 15.9 5.0-11.6 Rapid) [facility]DimcwycFBHRTSNMMB6744-46-09 05:37:00 Test Item Value Reference Range Interpretation Comments Max Amplitude Rapid (test code = Max 76 mm 52-71 Amplitude Rapid) [facility] CenterSroatfnGMYYLQHFTD6507-60-17 05:37:00 Test Item Value Reference Range Interpretation Comments R-time Rapid (test code = R-time 0.7 min 0.4-0.7 Rapid) [facility] HospitalWswvqtqKEURQAFPHP1367-13-81 05:37:00 Test Item Value Reference Range Interpretation Comments K-time Rapid (test code = K-time 0.8 min 0.6-2.3 Rapid) [facility] HospitalRjndklgQCICEIFIRV7602-38-44 05:37:00 Test Item Value Reference Range Interpretation Comments Split Point Rapid (test code = Split 0.5 min Point Rapid) [facility] HospitalLdsnhymTNIJQSILOR1184-18-25 05:37:00 Test Item Value Reference Range Interpretation Comments Angle Rapid (test code = Angle 80 degrees 64-80 Rapid) [facility] CenterVkkfpkyCPYOQUDYYS3528-75-32 05:37:00 Test Item Value Reference Range Interpretation Comments ACT (TEG) Rapid (test code = ACT (TEG) 113 s 86-118 Rapid) [facility] CenterCxafevwDVMFKVHSBV0876-54-45 05:37:00 Test Item Value Reference Range Interpretation Comments Estimated % Lysis Rapid 0.0 See_Comment [Au tomated message] The (test code = Estimated syste m which generated % Lysis Rapid) this result t ransmitted reference range : <=7.5. The reference r ting was not used to int erpret this result as normal/abnormal . [facility] CenterXlfywhoDAMBDOVHWS4955-90-44 05:37:00 Test Item Value Reference Range Interpretation Comments WBC (test code = WBC) 16.0 3.7-10.4 [facility] CenterUvbltgtQPWZXEWRKE5344-04-26 05:37:00 Test Item Value Reference Range Interpretation Comments RBC (test code = RBC) 4.13 4.20-5.40 [facility] CenterHysdccpAZQTYLKYRU1599-96-26 05:37:00 Test Item Value Reference Range Interpretation Comments RDW (test code = RDW) 12.8 11.5-14.5 [facility] CenterGxzbypvOVZLJAJLYA7963-20-61 05:37:00 Test Item Value Reference Range Interpretation Comments Platelet (test code = Platelet) 325 133-450 [facility] CenterNbgboauELXENAOCDY6981-92-05 05:37:00 Test Item Value Reference Range Interpretation Comments MPV (test code = MPV) 7.8 7.4-10.4 [facility] CenterFmskpssSUOTBKAOPQ2520-36-63 05:37:00 Test Item Value Reference Range Interpretation Comments MCHC (test code = MCHC) 34.1 32.0-36.0 [facility] CenterWuetzayLVIDKGZZQI0042-31-82 05:37:00 Test Item Value Reference Range Interpretation Comments Hgb (test code = Hgb) 12.9 12.0-16.0 [facility] CenterFhmgosrPBJGFYWNIX1251-11-02 05:37:00 Test Item Value Reference Range Interpretation Comments Hct (test code = Hct) 37.8 36.0-48.0 [facility] CenterAhhphauNADXMSOBWJ3486-38-43 05:37:00 Test Item Value Reference Range Interpretation Comments MCV (test code = MCV) 91.6 80.0-98.0 [facility] CenterNgldsamYRTIUWTCYT2812-56-69 05:37:00 Test Item Value Reference Range Interpretation Comments MCH (test code = MCH) 31.3 pg 27.0-31.0 [facility] CenterVlpfpbrTCLTIPUSQI5362-79-00 05:37:00 Test Item Value Reference Range Interpretation Comments Monocytes # (test code 0.6 See_Comment [Aut omated message] The = Monocytes #) system which generated this result tra nsmitted reference range : <=0.8. The reference r ting was not used to int erpret this result as normal/abnormal . [facility] CenterJjkinilJCQKNSDCCR4906-37-61 05:37:00 Test Item Value Reference Range Interpretation Comments Lymphocytes # (test code = Lymphocytes 1.0 1.0-5.5 #) [facility] CenterAiwqmpzDPPAFPBYXN2567-94-79 05:37:00 Test Item Value Reference Range Interpretation Comments Basophils (test code = 0.1 See_Comment [Aut omated message] The Basophils) system which ge nerated this result tra nsmitted reference range : <=1.0. The reference r ting was not used to int erpret this result as normal/abnormal . [facility] CenterLdyziffYQHVAJZMRT7641-41-92 05:37:00 Test Item Value Reference Range Interpretation Comments Monocytes (test code = Monocytes) 4.1 2.0-12.0 [facility] CenterFjljtgcHPVWARKIHW5125-74-26 05:37:00 Test Item Value Reference Range Interpretation Comments Segs-Bands # (test code = Segs-Bands #) 14.3 1.5-8.1 [facility] CenterAqcnoboCDSRRLJFGC1177-60-47 05:37:00 Test Item Value Reference Range Interpretation Comments Lymphocytes (test code = Lymphocytes) 6.3 20.0-40.0 [facility] CenterJkfwckcCZQHRTCTKG5243-68-72 05:37:00 Test Item Value Reference Range Interpretation Comments Segs (test code = Segs) 89.5 45.0-75.0 [facility]2016-09-19 05:37:00 Test Item Value Reference Range Interpretation Comments Calcium Lvl (test code = Calcium Lvl) 8.3 8.5-10.[address] [facility] CenterGeeYuu [id number] 05:37:00 Test Item Value Reference Range Interpretation Comments Sodium Lvl (test code = Sodium Lvl) 140 135-145 [facility]2016-09-19 05:37:00 Test Item Value Reference Range Interpretation Comments Potassium Lvl (test code = Potassium 3.4 3.5-5.1 Lvl) [facility]2016-09-19 05:37:00 Test Item Value Reference Range Interpretation Comments Chloride Lvl (test code = Chloride Lvl) 105 95-109 [place] [id number] 05:37:00 Test Item Value Reference Range Interpretation Comments CO2 (test code = CO2) 25 24-32 [facility]2016-09-19 05:37:00 Test Item Value Reference Range Interpretation Comments BUN (test code = BUN) 14 7-22 [facility]2016-09-19 05:37:00 Test Item Value Reference Range Interpretation Comments Glucose Lvl (test code = Glucose Lvl) 110 70-99 [facility]2016-09-19 05:37:00 Test Item Value Reference Range Interpretation Comments Creatinine Lvl (test code = Creatinine 0.59 0.50-1.40 Lvl) [facility]2016-09-19 05:37:00 Test Item Value Reference Range Interpretation Comments eGFR (test code = eGFR) 122 [facility]2016-09-19 05:37:00 Test Item Value Reference Range Interpretation Comments AGAP (test code = AGAP) 13.4 10.0-20.0 [place] [id number] 05:37:00 Test Item Value Reference Range Interpretation Comments S Preg (test code = S Negative (07/30/16 12:37 Preg) AM) [facility] CenterAfrzljxPKIPMRDMHT0860-84-71 05:37:00 Test Item Value Reference Range Interpretation Comments G-value Rapid (test code = G-value 15.9 5.0-11.6 Rapid) [facility] CenterFtskpweFOGJUPJCFV5912-26-53 05:37:00 Test Item Value Reference Range Interpretation Comments Max Amplitude Rapid (test code = Max 76 mm 52-71 Amplitude Rapid) [facility] CenterXdafevyZPRIHBLHLE0310-72-94 05:37:00 Test Item Value Reference Range Interpretation Comments R-time Rapid (test code = R-time 0.7 min 0.4-0.7 Rapid) [facility] CenterNtfqwmdCAIQUPEKJA3993-36-13 05:37:00 Test Item Value Reference Range Interpretation Comments K-time Rapid (test code = K-time 0.8 min 0.6-2.3 Rapid) [facility] CenterGpomxpdXQVQYVQIWL8782-27-95 05:37:00 Test Item Value Reference Range Interpretation Comments Split Point Rapid (test code = Split 0.5 min Point Rapid) [facility] CenterKgzmbjaHMVPMYNRUQ9779-50-94 05:37:00 Test Item Value Reference Range Interpretation Comments Angle Rapid (test code = Angle 80 degrees 64-80 Rapid) [facility] CenterVykgglfJJIYSGLITW2182-43-12 05:37:00 Test Item Value Reference Range Interpretation Comments ACT (TEG) Rapid (test code = ACT (TEG) 113 s 86-118 Rapid) [facility] CenterFelvpdbIHYVKOUZRW9384-67-06 05:37:00 Test Item Value Reference Range Interpretation Comments Estimated % Lysis Rapid 0.0 See_Comment [Au tomated message] The (test code = Estimated syste m which generated % Lysis Rapid) this result t ransmitted reference range : <=7.5. The reference r ting was not used to int erpret this result as normal/abnormal . [facility] CenterIfskdwjADLFNXWADZ2043-36-90 05:37:00 Test Item Value Reference Range Interpretation Comments WBC (test code = WBC) 16.0 3.7-10.4 [facility] CenterMnucmzcGMKSAFCNOT8138-74-93 05:37:00 Test Item Value Reference Range Interpretation Comments RBC (test code = RBC) 4.13 4.20-5.40 [facility] CenterIbqsghvSUMKUECTZD7700-10-35 05:37:00 Test Item Value Reference Range Interpretation Comments RDW (test code = RDW) 12.8 11.5-14.5 [facility] CenterRsgakpuUTSPIMSDGB9285-47-86 05:37:00 Test Item Value Reference Range Interpretation Comments Platelet (test code = Platelet) 325 133-450 [facility] CenterVhzzqfyIGLONDJOYZ6162-52-34 05:37:00 Test Item Value Reference Range Interpretation Comments MPV (test code = MPV) 7.8 7.4-10.4 [facility] CenterLlhmpgoOODWNBNHFJ2947-33-14 05:37:00 Test Item Value Reference Range Interpretation Comments MCHC (test code = MCHC) 34.1 32.0-36.0 [facility] CenterXnzpbnlYZAWYMALRG3266-73-63 05:37:00 Test Item Value Reference Range Interpretation Comments Hgb (test code = Hgb) 12.9 12.0-16.0 [facility] CenterEpbxeiiUTSVAUXZED0864-06-72 05:37:00 Test Item Value Reference Range Interpretation Comments Hct (test code = Hct) 37.8 36.0-48.0 [facility] CenterIozdiujCAMDARSHVW8875-08-39 05:37:00 Test Item Value Reference Range Interpretation Comments MCV (test code = MCV) 91.6 80.0-98.0 [facility] CenterKuhkghrIHABJWLKOG6381-55-60 05:37:00 Test Item Value Reference Range Interpretation Comments MCH (test code = MCH) 31.3 pg 27.0-31.0 [facility] CenterMlktalmZMMCBFFJLJ9857-61-03 05:37:00 Test Item Value Reference Range Interpretation Comments Monocytes # (test code 0.6 See_Comment [Aut omated message] The = Monocytes #) system which generated this result tra nsmitted reference range : <=0.8. The reference r ting was not used to int erpret this result as normal/abnormal . [facility] CenterDmicoxpKKIJNJASGH6647-70-22 05:37:00 Test Item Value Reference Range Interpretation Comments Lymphocytes # (test code = Lymphocytes 1.0 1.0-5.5 #) [facility] CenterXjznrweZZMOVRAOIV6827-05-37 05:37:00 Test Item Value Reference Range Interpretation Comments Basophils (test code = 0.1 See_Comment [Aut omated message] The Basophils) system which ge nerated this result tra nsmitted reference range : <=1.0. The reference r ting was not used to int erpret this result as normal/abnormal . [facility] CenterQxsqpnhCWQVIFQUBR0430-05-96 05:37:00 Test Item Value Reference Range Interpretation Comments Monocytes (test code = Monocytes) 4.1 2.0-12.0 [facility] CenterSurjoiwEAQEMKXTBW4408-48-78 05:37:00 Test Item Value Reference Range Interpretation Comments Segs-Bands # (test code = Segs-Bands #) 14.3 1.5-8.1 [facility] CenterZfzxoogTMJHYCKSRO1244-58-47 05:37:00 Test Item Value Reference Range Interpretation Comments Lymphocytes (test code = Lymphocytes) 6.3 20.0-40.0 [facility] CenterAoagpesSIQLRVWNRN1869-35-59 05:37:00 Test Item Value Reference Range Interpretation Comments Segs (test code = Segs) 89.5 45.0-75.0 [facility]2016-09-19 05:37:00 Test Item Value Reference Range Interpretation Comments Calcium Lvl (test code = Calcium Lvl) 8.3 8.5-10.5 [facility]2016-09-19 05:37:00 Test Item Value Reference Range Interpretation Comments Sodium Lvl (test code = Sodium Lvl) 140 135-145 [facility]2016-09-19 05:37:00 Test Item Value Reference Range Interpretation Comments Potassium Lvl (test code = Potassium 3.4 3.5-5.1 Lvl) [facility]2016-09-19 05:37:00 Test Item Value Reference Range Interpretation Comments Chloride Lvl (test code = Chloride Lvl) 105 95-109 [facility]2016-09-19 05:37:00 Test Item Value Reference Range Interpretation Comments CO2 (test code = CO2) 25 24-32 [facility]2016-09-19 05:37:00 Test Item Value Reference Range Interpretation Comments BUN (test code = BUN) 14 7-22 [facility]2016-09-19 05:37:00 Test Item Value Reference Range Interpretation Comments Glucose Lvl (test code = Glucose Lvl) 110 70-99 [facility]2016-09-19 05:37:00 Test Item Value Reference Range Interpretation Comments Creatinine Lvl (test code = Creatinine 0.59 0.50-1.40 Lvl) [facility]2016-09-19 05:37:00 Test Item Value Reference Range Interpretation Comments eGFR (test code = eGFR) 122 [facility]2016-09-19 05:37:00 Test Item Value Reference Range Interpretation Comments AGAP (test code = AGAP) 13.4 10.0-20.0 [facility]SlnukwmBQZQHOSEZPDLB2993-08-94 05:37:00 Test Item Value Reference Range Interpretation Comments S Preg (test code = S Negative (07/30/16 12:37 Preg) AM) [facility] CenterGesnyerMXVRJZATFO0048-23-17 05:37:00 Test Item Value Reference Range Interpretation Comments G-value Rapid (test code = G-value 15.9 5.0-11.6 Rapid) [facility] CenterNirwlpeHZAEEGPDMA5006-45-92 05:37:00 Test Item Value Reference Range Interpretation Comments Max Amplitude Rapid (test code = Max 76 mm 52-71 Amplitude Rapid) [facility] CenterSlmnzqqXQTWEMBZAK8943-93-52 05:37:00 Test Item Value Reference Range Interpretation Comments R-time Rapid (test code = R-time 0.7 min 0.4-0.7 Rapid) [facility] CenterXuvfkamUAUTBHOPDF4379-92-78 05:37:00 Test Item Value Reference Range Interpretation Comments K-time Rapid (test code = K-time 0.8 min 0.6-2.3 Rapid) [facility] CenterYuyojokMOKFYSJZOH8127-64-24 05:37:00 Test Item Value Reference Range Interpretation Comments Split Point Rapid (test code = Split 0.5 min Point Rapid) [facility] CenterFfdvyhdXDEYOPIYRZ5051-76-19 05:37:00 Test Item Value Reference Range Interpretation Comments Angle Rapid (test code = Angle 80 degrees 64-80 Rapid) [facility] CenterOxufilnEXWVISJMLR6675-57-56 05:37:00 Test Item Value Reference Range Interpretation Comments ACT (TEG) Rapid (test code = ACT (TEG) 113 s 86-118 Rapid) [facility] CenterQmczwgrGIEGRTCYHI3320-12-87 05:37:00 Test Item Value Reference Range Interpretation Comments Estimated % Lysis Rapid 0.0 See_Comment [Au tomated message] The (test code = Estimated syste m which generated % Lysis Rapid) this result t ransmitted reference range : <=7.5. The reference r ting was not used to int erpret this result as normal/abnormal . [facility] CenterZpbbzrtBOCKREHUAT4053-42-96 05:37:00 Test Item Value Reference Range Interpretation Comments WBC (test code = WBC) 16.0 3.7-10.4 [facility] CenterQbmpzwgLITAJYXDIH8596-31-54 05:37:00 Test Item Value Reference Range Interpretation Comments RBC (test code = RBC) 4.13 4.20-5.40 [facility]YawzgyeJTCMTRHYEL9952-03-98 05:37:00 Test Item Value Reference Range Interpretation Comments RDW (test code = RDW) 12.8 11.5-14.5 [facility] CenterKpjwyxfHWSIACWDWO2961-25-03 05:37:00 Test Item Value Reference Range Interpretation Comments Platelet (test code = Platelet) 325 133-450 [facility] CenterQkuqwuaFKORMMKCNK6861-23-17 05:37:00 Test Item Value Reference Range Interpretation Comments MPV (test code = MPV) 7.8 7.4-10.4 [facility] CenterLtzlgdmYQSQQMVHIE4115-08-53 05:37:00 Test Item Value Reference Range Interpretation Comments MCHC (test code = MCHC) 34.1 32.0-36.0 [facility] CenterOxslztpKAGPARBOVT9167-25-97 05:37:00 Test Item Value Reference Range Interpretation Comments Hgb (test code = Hgb) 12.9 12.0-16.0 [facility] CenterKzyllubPNJWDZAASK3366-99-81 05:37:00 Test Item Value Reference Range Interpretation Comments Hct (test code = Hct) 37.8 36.0-48.0 [facility] CenterCcgdbwjAIALBZHDYR2072-61-61 05:37:00 Test Item Value Reference Range Interpretation Comments MCV (test code = MCV) 91.6 80.0-98.0 [facility] CenterAptjoobIHQJROSOXS9051-14-00 05:37:00 Test Item Value Reference Range Interpretation Comments MCH (test code = MCH) 31.3 pg 27.0-31.0 [facility] CenterPscxhxzEXWEMKIMLN7598-25-63 05:37:00 Test Item Value Reference Range Interpretation Comments Monocytes # (test code 0.6 See_Comment [Aut omated message] The = Monocytes #) system which generated this result tra nsmitted reference range : <=0.8. The reference r ting was not used to int erpret this result as normal/abnormal . [facility] CenterQwebofyZJWNBXAZQZ4843-20-14 05:37:00 Test Item Value Reference Range Interpretation Comments Lymphocytes # (test code = Lymphocytes 1.0 1.0-5.5 #) [facility] CenterCoamwriKRYIAIXPKP1265-99-43 05:37:00 Test Item Value Reference Range Interpretation Comments Basophils (test code = 0.1 See_Comment [Aut omated message] The Basophils) system which ge nerated this result tra nsmitted reference range : <=1.0. The reference r ting was not used to int erpret this result as normal/abnormal . [facility] CenterOhbydpiXJLIMUIQLZ4894-68-52 05:37:00 Test Item Value Reference Range Interpretation Comments Monocytes (test code = Monocytes) 4.1 2.0-12.0 [facility] CenterSmutdygJZKKVMLFIW9975-96-86 05:37:00 Test Item Value Reference Range Interpretation Comments Segs-Bands # (test code = Segs-Bands #) 14.3 1.5-8.1 [facility] CenterOzahdzwQCQRCKVFES8648-25-04 05:37:00 Test Item Value Reference Range Interpretation Comments Lymphocytes (test code = Lymphocytes) 6.3 20.0-40.0 [facility] CenterOajtvfbXLGWANXZXE4253-84-80 05:37:00 Test Item Value Reference Range Interpretation Comments Segs (test code = Segs) 89.5 45.0-75.0 [facility]2016-09-19 05:37:00 Test Item Value Reference Range Interpretation Comments Calcium Lvl (test code = Calcium Lvl) 8.3 8.5-10.5 [facility]2016-09-19 05:37:00 Test Item Value Reference Range Interpretation Comments Sodium Lvl (test code = Sodium Lvl) 140 135-145 [facility]2016-09-19 05:37:00 Test Item Value Reference Range Interpretation Comments Potassium Lvl (test code = Potassium 3.4 3.5-5.1 Lvl) [facility]2016-09-19 05:37:00 Test Item Value Reference Range Interpretation Comments Chloride Lvl (test code = Chloride Lvl) 105 95-109 [facility]2016-09-19 05:37:00 Test Item Value Reference Range Interpretation Comments CO2 (test code = CO2) 25 24-32 [facility]2016-09-19 05:37:00 Test Item Value Reference Range Interpretation Comments BUN (test code = BUN) 14 7-22 [facility]2016-09-19 05:37:00 Test Item Value Reference Range Interpretation Comments Glucose Lvl (test code = Glucose Lvl) 110 70-99 [facility]2016-09-19 05:37:00 Test Item Value Reference Range Interpretation Comments Creatinine Lvl (test code = Creatinine 0.59 0.50-1.40 Lvl) [facility]2016-09-19 05:37:00 Test Item Value Reference Range Interpretation Comments eGFR (test code = eGFR) 122 [facility]2016-09-19 05:37:00 Test Item Value Reference Range Interpretation Comments AGAP (test code = AGAP) 13.4 10.0-20.0 [facility]bvbcbqLAAOWSVNRMWJZ0299-61-85 05:37:00 Test Item Value Reference Range Interpretation Comments S Preg (test code = S Negative (07/30/16 12:37 Preg) AM) [facility] CenterMnmdjayYFJBEBUZVS8588-89-97 05:37:00 Test Item Value Reference Range Interpretation Comments G-value Rapid (test code = G-value 15.9 5.0-11.6 Rapid) [facility]2016-09-19 05:37:00 Test Item Value Reference Range Interpretation Comments Calcium Lvl (test code = Calcium Lvl) 8.3 8.5-10.5 [facility]2016-09-19 05:37:00 Test Item Value Reference Range Interpretation Comments Sodium Lvl (test code = Sodium Lvl) 140 135-145 [facility]2016-09-19 05:37:00 Test Item Value Reference Range Interpretation Comments Potassium Lvl (test code = Potassium 3.4 3.5-5.1 Lvl) [facility]2016-09-19 05:37:00 Test Item Value Reference Range Interpretation Comments Chloride Lvl (test code = Chloride Lvl) 105 95-109 [facility] CenterTermypxSXRYUXXDJD4177-66-46 05:37:00 Test Item Value Reference Range Interpretation Comments Max Amplitude Rapid (test code = Max 76 mm 52-71 Amplitude Rapid) [facility]2016-09-19 05:37:00 Test Item Value Reference Range Interpretation Comments CO2 (test code = CO2) 25 24-32 [facility]2016-09-19 05:37:00 Test Item Value Reference Range Interpretation Comments BUN (test code = BUN) 14 7-22 [facility]2016-09-19 05:37:00 Test Item Value Reference Range Interpretation Comments Glucose Lvl (test code = Glucose Lvl) 110 70-99 [facility]2016-09-19 05:37:00 Test Item Value Reference Range Interpretation Comments Creatinine Lvl (test code = Creatinine 0.59 0.50-1.40 Lvl) [facility]2016-09-19 05:37:00 Test Item Value Reference Range Interpretation Comments eGFR (test code = eGFR) 122 [facility]2016-09-19 05:37:00 Test Item Value Reference Range Interpretation Comments AGAP (test code = AGAP) 13.4 10.0-20.0 [facility]kinJopevtbHPPRSXLXSBDQK3438-70-56 05:37:00 Test Item Value Reference Range Interpretation Comments S Preg (test code = S Negative (07/30/16 12:37 Preg) AM) [facility] CenterHdcwsxtUQHWFGGRTY0681-15-90 05:37:00 Test Item Value Reference Range Interpretation Comments G-value Rapid (test code = G-value 15.9 5.0-11.6 Rapid) [facility] CenterNuqxpjaSSUYPKBQKQ5228-96-22 05:37:00 Test Item Value Reference Range Interpretation Comments Max Amplitude Rapid (test code = Max 76 mm 52-71 Amplitude Rapid) [facility] CenterFqphesePSTWIDGJXD9868-47-12 05:37:00 Test Item Value Reference Range Interpretation Comments R-time Rapid (test code = R-time 0.7 min 0.4-0.7 Rapid) [facility] CenterYujvrfhIKPZVVCNXQ8187-36-44 05:37:00 Test Item Value Reference Range Interpretation Comments R-time Rapid (test code = R-time 0.7 min 0.4-0.7 Rapid) [facility] CenterGecquofWUBGTCWKII8879-70-94 05:37:00 Test Item Value Reference Range Interpretation Comments K-time Rapid (test code = K-time 0.8 min 0.6-2.3 Rapid) [facility] CenterIhwvxirVCIMSRBHAL0218-12-01 05:37:00 Test Item Value Reference Range Interpretation Comments Split Point Rapid (test code = Split 0.5 min Point Rapid) [facility] CenterAyukwlhPLSLLMJBRX6765-14-16 05:37:00 Test Item Value Reference Range Interpretation Comments Angle Rapid (test code = Angle 80 degrees 64-80 Rapid) [facility] CenterVhgsolsFHWHCDPYQN6584-85-78 05:37:00 Test Item Value Reference Range Interpretation Comments ACT (TEG) Rapid (test code = ACT (TEG) 113 s 86-118 Rapid) [facility] CenterPmwvjqcMXMFQUTWKP7708-76-89 05:37:00 Test Item Value Reference Range Interpretation Comments Estimated % Lysis Rapid 0.0 See_Comment [Au tomated message] The (test code = Estimated syste m which generated % Lysis Rapid) this result t ransmitted reference range : <=7.5. The reference r ting was not used to int erpret this result as normal/abnormal . [place] 679686-09-19 05:37:00 Test Item Value Reference Range Interpretation Comments WBC (test code = WBC) 16.0 3.7-10.4 [facility] CenterHzqyqokNTSCUNTXVW5688-14-80 05:37:00 Test Item Value Reference Range Interpretation Comments RBC (test code = RBC) 4.13 4.20-5.40 [place] 679686-09-19 05:37:00 Test Item Value Reference Range Interpretation Comments RDW (test code = RDW) 12.8 11.5-14.5 [facility] CenterFlinxoeYNKKCDJNLE4471-21-99 05:37:00 Test Item Value Reference Range Interpretation Comments Platelet (test code = Platelet) 325 133-450 [facility] CenterVcnfxxtCKOKBOAGPF5078-16-50 05:37:00 Test Item Value Reference Range Interpretation Comments MPV (test code = MPV) 7.8 7.4-10.4 [facility] CenterTlppodbHNLMPVKXTC5878-04-70 05:37:00 Test Item Value Reference Range Interpretation Comments K-time Rapid (test code = K-time 0.8 min 0.6-2.3 Rapid) [facility] CenterOsiuqguVPZODSEWGU1901-39-43 05:37:00 Test Item Value Reference Range Interpretation Comments MCHC (test code = MCHC) 34.1 32.0-36.0 [facility] CenterXegyuhsYZRKXAMDKT1050-41-87 05:37:00 Test Item Value Reference Range Interpretation Comments Hgb (test code = Hgb) 12.9 12.0-16.0 [facility] CenterVcevqwvGZFJHEFQGK5820-32-11 05:37:00 Test Item Value Reference Range Interpretation Comments Hct (test code = Hct) 37.8 36.0-48.0 [facility] CenterYyqhblgTSZLSCOCZM0261-39-78 05:37:00 Test Item Value Reference Range Interpretation Comments MCV (test code = MCV) 91.6 80.0-98.0 [facility] CenterHmzlpilODOPTYPQAM7934-27-81 05:37:00 Test Item Value Reference Range Interpretation Comments MCH (test code = MCH) 31.3 pg 27.0-31.0 [facility] CenterZlqjgxsWRCGQBODUL9932-80-83 05:37:00 Test Item Value Reference Range Interpretation Comments Monocytes # (test code 0.6 See_Comment [Aut omated message] The = Monocytes #) system which generated this result tra nsmitted reference range : <=0.8. The reference r ting was not used to int erpret this result as normal/abnormal . [facility] CenterCysdbppZGFFPCLEIH8919-51-03 05:37:00 Test Item Value Reference Range Interpretation Comments Lymphocytes # (test code = Lymphocytes 1.0 1.0-5.5 #) [facility] CenterEsoupzkKNLZTCHEUX9879-30-89 05:37:00 Test Item Value Reference Range Interpretation Comments Basophils (test code = 0.1 See_Comment [Aut omated message] The Basophils) system which ge nerated this result tra nsmitted reference range : <=1.0. The reference r ting was not used to int erpret this result as normal/abnormal . [facility] CenterTglrzbcGNVTXGJMSI0891-91-25 05:37:00 Test Item Value Reference Range Interpretation Comments Monocytes (test code = Monocytes) 4.1 2.0-12.0 [facility] CenterEydsznwFLHBLJUXSK7111-69-48 05:37:00 Test Item Value Reference Range Interpretation Comments Segs-Bands # (test code = Segs-Bands #) 14.3 1.5-8.1 [facility] CenterKsgkilyEKMXWFFAWI8526-43-83 05:37:00 Test Item Value Reference Range Interpretation Comments Split Point Rapid (test code = Split 0.5 min Point Rapid) [facility] CenterGewumseHBZZQGBAQS1924-99-52 05:37:00 Test Item Value Reference Range Interpretation Comments Lymphocytes (test code = Lymphocytes) 6.3 20.0-40.0 [facility] CenterNuyroghLEVARJRDTL0347-62-54 05:37:00 Test Item Value Reference Range Interpretation Comments Segs (test code = Segs) 89.5 45.0-75.0 [facility] CenterMmgwupbEBOQDKWQUZ2328-16-57 05:37:00 Test Item Value Reference Range Interpretation Comments Angle Rapid (test code = Angle 80 degrees 64-80 Rapid) [facility] CenterYqsvsarDPOHQQRBSJ7203-18-91 05:37:00 Test Item Value Reference Range Interpretation Comments ACT (TEG) Rapid (test code = ACT (TEG) 113 s 86-118 Rapid) [facility] CenterAugxzixMWCOSCXNKW8553-63-50 05:37:00 Test Item Value Reference Range Interpretation Comments Estimated % Lysis Rapid 0.0 See_Comment [Au tomated message] The (test code = Estimated syste m which generated % Lysis Rapid) this result t ransmitted reference range : <=7.5. The reference r ting was not used to int erpret this result as normal/abnormal . [facility] CenterOtilhymCHWSPZGQMR6303-93-82 05:37:00 Test Item Value Reference Range Interpretation Comments WBC (test code = WBC) 16.0 3.7-10.4 [place] 679686-09-19 05:37:00 Test Item Value Reference Range Interpretation Comments RBC (test code = RBC) 4.13 4.20-5.40 [facility] CenterTzslpedPIALKHPYSP3011-82-80 05:37:00 Test Item Value Reference Range Interpretation Comments RDW (test code = RDW) 12.8 11.5-14.5 [facility] CenterTskxlokJZNSHRUYAL1301-57-50 05:37:00 Test Item Value Reference Range Interpretation Comments Platelet (test code = Platelet) 325 133-450 [facility] CenterCsddhizEZCBCMUNYZ5668-12-24 05:37:00 Test Item Value Reference Range Interpretation Comments MPV (test code = MPV) 7.8 7.4-10.4 [facility] CenterSzeqhkeATWTNYFFRV9580-33-83 05:37:00 Test Item Value Reference Range Interpretation Comments MCHC (test code = MCHC) 34.1 32.0-36.0 [facility] CenterEiwcdjeHQURPOORZQ9149-71-93 05:37:00 Test Item Value Reference Range Interpretation Comments Hgb (test code = Hgb) 12.9 12.0-16.0 [facility] CenterKnciajwJKBNZACKIQ1516-91-51 05:37:00 Test Item Value Reference Range Interpretation Comments Hct (test code = Hct) 37.8 36.0-48.0 [facility] CenterMyerjzsNGBPJDTBXA3175-02-63 05:37:00 Test Item Value Reference Range Interpretation Comments MCV (test code = MCV) 91.6 80.0-98.0 [facility] CenterEdqkumpOPXXABLYSF2317-61-32 05:37:00 Test Item Value Reference Range Interpretation Comments MCH (test code = MCH) 31.3 pg 27.0-31.0 [facility] CenterPgvatqbKKQHRFMXCE6237-25-89 05:37:00 Test Item Value Reference Range Interpretation Comments Monocytes # (test code 0.6 See_Comment [Aut omated message] The = Monocytes #) system which generated this result tra nsmitted reference range : <=0.8. The reference r ting was not used to int erpret this result as normal/abnormal . [facility] CenterIoisxplQIHLIOCHWV4014-70-02 05:37:00 Test Item Value Reference Range Interpretation Comments Lymphocytes # (test code = Lymphocytes 1.0 1.0-5.5 #) [facility] CenterHzgwktpTLPZCWRPWD6627-15-14 05:37:00 Test Item Value Reference Range Interpretation Comments Basophils (test code = 0.1 See_Comment [Aut omated message] The Basophils) system which ge nerated this result tra nsmitted reference range : <=1.0. The reference r ting was not used to int erpret this result as normal/abnormal . [facility] CenterOctuxtbAEYUPZCZHL5936-90-39 05:37:00 Test Item Value Reference Range Interpretation Comments Monocytes (test code = Monocytes) 4.1 2.0-12.0 [facility] CenterSqpoatoGIIYZJDJRW1739-96-60 05:37:00 Test Item Value Reference Range Interpretation Comments Segs-Bands # (test code = Segs-Bands #) 14.3 1.5-8.1 [facility] CenterCrsbqbgFLPUJRVGBE3450-79-33 05:37:00 Test Item Value Reference Range Interpretation Comments Lymphocytes (test code = Lymphocytes) 6.3 20.0-40.0 [facility] CenterBgpxteePJNRULAUDC5930-16-05 05:37:00 Test Item Value Reference Range Interpretation Comments Segs (test code = Segs) 89.5 45.0-75.0 [facility]2016-09-19 05:37:00 Test Item Value Reference Range Interpretation Comments Calcium Lvl (test code = Calcium Lvl) 8.3 8.5-10.5 [facility]2016-09-19 05:37:00 Test Item Value Reference Range Interpretation Comments Sodium Lvl (test code = Sodium Lvl) 140 135-145 [facility]2016-09-19 05:37:00 Test Item Value Reference Range Interpretation Comments Potassium Lvl (test code = Potassium 3.4 3.5-5.1 Lvl) [facility]2016-09-19 05:37:00 Test Item Value Reference Range Interpretation Comments Chloride Lvl (test code = Chloride Lvl) 105 95-109 [facility]2016-09-19 05:37:00 Test Item Value Reference Range Interpretation Comments CO2 (test code = CO2) 25 24-32 [facility]2016-09-19 05:37:00 Test Item Value Reference Range Interpretation Comments BUN (test code = BUN) 14 7-22 [facility]2016-09-19 05:37:00 Test Item Value Reference Range Interpretation Comments Glucose Lvl (test code = Glucose Lvl) 110 70-99 [facility]2016-09-19 05:37:00 Test Item Value Reference Range Interpretation Comments Creatinine Lvl (test code = Creatinine 0.59 0.50-1.40 Lvl) [facility]2016-09-19 05:37:00 Test Item Value Reference Range Interpretation Comments eGFR (test code = eGFR) 122 [facility]2016-09-19 05:37:00 Test Item Value Reference Range Interpretation Comments AGAP (test code = AGAP) 13.4 10.0-20.0 [facility] Date/Time Note Provider Source 2021-12-07 [id number] [facility] [place], [place] PATIENT NAME: AUDI CELAYA ADMIT DATE: 12/07/21 ACCOUNT NO: [id number] ROOM NO: AGE: 36 REPORT TYPE: ELECTROCARDIOGRAM SEX: F : 83 ADMITTING PHYSICIAN: ATTENDING PHYSICIAN:Celestine Calderon DO Order: [id number] Test Reason : Test Date/Time Stamp: SatDec 07 2021 03:13:20 Blood Pressure : / mmHG Vent. Rate : 081 BPM Atrial Rate : 081 BPM P-R Int : 112 ms QRS Dur : 078 ms QT Int : 368 ms P-R-T Axes : 038 049 051 degree s QTc Int : 427 ms Normal sinus rhythm Normal ECG Confirmed by CELESTINE CALDERON DO ([id number]), pictures editor SAMUEL DE LA CRUZ ([id number]) on 01/08/2022 2:49:13 PM Referred By: Self Referred Confirmed by:CELESTINE RENNER DO Electronically Signed by Celestnie Calderon DO on 12/13 07/02 at 1449 PATIENT NAME: AUDI CELAYA 771 [facility] OR A [facility] OF [facility] EMERGENCY PROVIDER REPORT REPORT#:[id number] REPORT STATUS: Signed DATE:12/07/21 TIME: 309 PATIENT: AUDI CELAYA UNIT #: [id number] ROOM/BED: AGE: 36 SEX: F PCP PHYS: Undefined Provider SERVICE AUTHOR: Celestine Calderon DO * ALL edits or amendments must be made on the [employer]/computer document * HPI-General Illness Free Text HPI Notes Free Text HPI Notes 36-year-old female with a hi story of mild hypertension, she reports that for the past few days she has been having high blood pre ssure and has been feeling strange and has been getting dizzy and kind of a rushing sensation into her head , and she reports last night around 7 PM she got a left-sided chest pain and her left arm and leg felt numb and heavy ever since. She does not have any ongoin g chest pain. She denies headache neck pain or back pain. Denies any other symptoms. General Confirmed Patient Yes Initial Greet Date/Time 12/07/21 0300 Presentation Chief Complaint REPORTS HIGH BLOOD PRESSURE AND FEELING DIZZY WAXING WANING PAST FEW DAYS THEN LAST NIGH T AROUND 7 PM SHE GOT LEFT SIDED CHEST PAIN AND HEFT LEFT ARM AND LEG HAS FELT NUMB AND HEAVY EVER SI NCE. 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 Performs both correct ly 0 Horizontal EO movements None 0 Visual wrne: No visual field loss 0 Facial palsy: Nml symmetrical movement 0 Lt arm motor drift (10s) No drift 0 Rt motor arm drift (10s) No drift 0 Lt leg motor drift (5s) No drift 0 Rt leg motor drift (5s) No drift 0 Limb ataxia FNF/heel-nolasco (F-N/H-S) Absent 0 Sensation (arms/legs/face): Mild, aware yet dul led 1 Language aphasia: No aphasia; normal 0 Dysarthria: Normal 0 Extinction/inattention: No abnormality 0 Total 1 NIH Stroke Score Timing Time 304 Date 12/07/21 Review of Systems ROS Statements All systems rev neg except as marked. Review of Systems Constitutional Denies: Chills, Fatigue, Fever, Lethargy, Malais e, Recent wt loss, Weakness - generalized. Respiratory Denies: Cough, non-productive, Cough, productive , Dyspnea on exertion, Hemoptysis, Parox nocturnal dyspnea, Pleuritic p ain, Shortness of breath, Wheezing. Cardiovascular Denies: Chest pain, Dyspnea on exertion, Edema, Orthopnea, Palpitations, Parox nocturnal dyspnea, Syncope. GI Denies: Abdominal pain, Nausea, Vomiting. Neurologic Reports: Dizziness, Numbness, Tingling. Denies: Change LOC, Confusion, Headache. Past Medical History - Adult Stated Complaint CHEST PAIN, NUMB, WEAK DIZZY Allergies Coded Allergies: No Known Allergies (11/25/20) Home Medications Reported Medications LISINOPRIL (ZESTRIL) 5 MG PO PRN BLOOD PRESSURE Review of Nursing Notes Rev avail, and agree Pt reports no significant: P ast surgical history, Family history, Social history Past Medical History: Reports: Hypertension. Smoking status: Smoking status for patients 13 years old or old er: Never Smoker Physical Exam Vital Signs Vital Signs First Documented: Result Date Time Pulse Ox 100 12/07 0304 B/P 128/88 12/07 0304 B/P Mean 101 12/07 0304 Temp 98.8 12/07 0304 Pulse 73 12/07 0304 Resp 16 12/07 0304 Last Documented: Result Date Time Pulse Ox 100 12/07 0404 B/P 126/76 12/07 0404 B/P Mean 96 12/07 0404 Temp 98.5 12/07 0404 Pulse 74 12/07 0404 Resp 17 12/07 0404 Review of Vital Signs Reviewed, Vital signs norm al Basic Physical Exam Basic PE GEN: Well appearing /NAD, HEAD: Atraumatic/NC, EYES: PERRL, conj clear, ENT: Membranes moist, NECK: Supple, RESP : No resp distress (NO W/R/R), CV: Reg rate rhythm, ABD: Soft/non-tender, EXT: No gross abnormality, SKIN: No rashes, warm/dry, NEURO: alert oriented, NEURO: gross mo vement NL, PSYCH: NL thought content Physical Exam General/Const General/Const Awake, Alert, No acute di stress, Well appearing, Well developed , Well hydrated, Well nourished, Cooperative, No t toxic appearing Neurologic Neurologic Oriented X3, Speech NL, No motor def icits, CN II - XII intact, Cerebellar NL, Memory NL, Gait NL Sensory Deficit Upper extremity L. Cerebellar Dysfunction Negative: Ataxia central, Ataxia peripheral, Dy sdiadochokinesis, Finger-nose abnl, Heel-nolasco abnl, Past pointing, Wide-based gait. Interpretation Diagnostics Lab Results Interpretation Results Laboratory Tests 12/07/21 0328: [Embedded Image Not Available] Laboratory Tests: 12/07 12/07 0328 0328 Chemistry Sodium (133 - 145 MMOL/L) 141 Potassium (3.6 - 5.2 MMOL/L) 3.8 Chloride (100 - 108 MMOL/L) 103 Carbon Dioxide (22 - 32 MMOL/L) 27 BUN (6 - 20 MG/DL) 13 Creatinine (0.60 - 1.00 MG/DL) 0.72 Estimated GFR (MDRD) (64 - 149) 91 Glucose (65 - 99 MG/DL) 99 Calcium (8.7 - 10.5 MG/DL) 9.0 Total Bilirubin (0.0 - 1.0 MG/DL) 0.4 AST (15 - 37 Units/L) 15 ALT (30 - 65 Units/L) 15 L Alkaline Phosphatase (50 - 136 Units/L) 55 Troponin I High Sens (< 51 ng/L) < 4 Total Protein (6.4 - 8.2 G/DL) 8.0 Albumin (3.4 - 5.0 G/DL) 4.0 Globulin (1.5 - 3.8 G/DL) 4.0 H Albumin/Globulin Ratio (1.1 - 2.2) 1.0 L HCG, Qual (NEGATIVE) NEGATIVE Hematology WBC (4.80 - 10.80 x10 3/uL) 8.95 RBC (4.2 - 5.4 x10 6/uL) 5.09 Hgb (12.0 - 16.0 G/DL) 15.5 Hct (37 - 47 %) 46.3 MCV (81 - 99 FL) 91.0 MCH (27 - 31 PG) 30.5 MCHC (33 - 37 G/DL) 33.5 RDW Coeff of Yevgeniy (11.5 - 14.5 %) 12.2 Plt Count (150 - 450 x10 3/uL) 435 MPV (7.4 - 10.4 FL) 9.5 Neut % (Auto) (42 - 86 %) 68.9 Lymph % (Auto) (24 - 44 %) 21.0 L [place] % (Auto) (0.0 - 4.0 %) 7.3 H Eos % (Auto) (0.0 - 2.7 %) 2.5 Baso % (Auto) (0.0 - 0.5 %) 0.3 Eos # (Auto) (0.0 - 0.5 x10 3/uL) 0.22 Baso # (Auto) (0.0 - 0.2 x10 3/uL) 0.03 Absolute Neuts (auto) (1.8 - 7.7 x10 3/uL) 6.17 Absolute Lymphs (auto) (1.0 - 4.8 x10 3/uL) 1.8 8 Absolute Monos (auto) (0.0 - 0.8 x10 3/uL) 0.65 Recent Impressions: CAT SCAN - CT HEAD/BRAIN W/O CONT 12/07 318 Report Impression - Status: SIGNED Entered: 12/07/2021 0330 Impression: 1. No acute intracranial abnormality. 2. Unremarkable exam. Impression By: Marky High MD CAT SCAN - CTA NECK 12/07 441 Report Impression - Status: SIGNED Entered: 12/07/2021513 IMPRESSION: 1. 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 Otherwise, unremarkable CTA head and neck. Impression By: Gaudencio Henderson MD CAT SCAN - CTA HEAD 12/07 441 Report Impression - Status: SIGNED Entered: 12/07/2021513 IMPRESSION: 1. 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 Otherwise, unremarkable CTA head and neck. Impression By: Gaudencio Henderson MD Lab Imaging Statement Laboratory radiographic studies reviewed and con sidered in the medical decision-making. ECG #1 Interpretation ECG Documented in MUSE Yes Date 12/07/21 Time 0313 Interpreted by and reviewed by me, ED physician NL ECG Interpretation Normal rate, Normal sinus rhythm, No acute ischemic changes, No STEMI, Normal QRS, Normal ST waves, Normal T waves, Normal axis, Normal intervals, Adequate tracing Rate 81 Re-Evaluation MDM Re-Evaluation/Progress #1 Text/Dict Note Vital stable, no active chest pain, patient has subjective left arm and leg numbness, could be panic disorder, less likely a n acute CVA. Patient did not want to go into town to get an M RI of her brain and instead elected for a CTA of the head neck to rule out a ny large vessel occlusions. I will discharge her home and give her all of her results and recommend that she follow-up with her PCP as soon as possible. Time of Re-Eval 524 ED Course Medication(s) Ordered Medication(s) Ordered: Central Nervous System Agents Sig/Phil Start time Last Medication Dose Route Stop Time Status Admin Aspirin 324 MG X1ED STA 12/07 0416 DC 12/07 PO 12/07 0417 0426 Diagnostic Agents Sig/Phil Start time Last Medication Dose Route Stop Time Status Admin Iopamidol 0 .STK-MED ONE 12/07 0435 DC 12/07 IV 0444 Patient Discharge Departure Vital Signs/Condition Vital Signs First Documented: Result Date Time Pulse Ox 100 12/07 0304 B/P 128/88 12/07 0304 B/P Mean 101 12/07 0304 Temp 98.8 12/07 0304 Pulse 73 12/07 0304 Resp 16 12/07 0304 Last Documented: Result Date Time Pulse Ox 100 12/07 0404 B/P 126/76 12/07 0404 B/P Mean 96 12/07 0404 Temp 98.5 12/07 0404 Pulse 74 12/07 0404 Resp 17 12/07 0404 All vital signs available at the time of this en try have been reviewed. Condition Stable Clinical Impression Clinical Impression Primary Impression: PARESTHESIA LEFT ARM AND LEG Secondary Impressions: History of hypertension Disposition Decision Discharge )( Discharged to Home Yes )( Time 526 )( Date 12/07/21 Discharge/Care Plan Counseled Regarding Diagnosi s, Lab results, Imaging studies, Need for follow-up, When to return to ED Patient Instructions ED Paraesthesias Additional Instructions CT of your head and the CTA of your head and nec k were normal not showing any evidence of stroke or large vessel occlusion of any arteries in your head or neck. Your EKG was normal and your blood troponin test was normal ruling out a heart attack. Please follow-up with your primary care physician soon as possible take all of your results to your follow -up appointment. Electronically Signed by Celestine Calderon DO on 12/07 at 0528 RPT #:[id number] END OF REPORT 2020-11-25 [id number] [facility] 12:55:00-00:00 [place], [place] PATIENT NAME: AUDI CELAYA ADMIT DATE: 11/25/20 ACCOUNT NO: [id number] ROOM NO: AGE: 35 REPORT TYPE: ELECTROCARDIOGRAM SEX: F : 84 ADMITTING PHYSICIAN: ATTENDING PHYSICIAN:Dung Estevez MD Order: [id number] Test Reason : Test Date/Time Stamp: SatNov 25 2020 12:55:20 Blood Pressure : / mmHG Vent. Rate : 083 BPM Atrial Rate : 083 BPM P-R Int : 122 ms QRS Dur : 080 ms QT Int : 366 ms P-R-T Axes : 039 041 029 degre es QTc Int : 430 ms Normal sinus rhythm T wave abnormality, consider anterior ischemia Abnormal ECG No previous ECGs available Confirmed by JERRY Reyes, FR OLIVAREZ ([id number]), pictures editor SAMUEL MOSS ([id number]) on 12/27/2020 10:40:11 AM Referred By: Self Referred Confirmed by:DUNG ESTEVEZ M.D. Electronically Signed by Dung Estevez MD o n 12/27/20 at 1041 PATIENT NAME: AUDI CELAYA 711 2020-11-25 [facility] 12:47:00-00:00 [facility] ([facility] OR A [facility]AMP[facility] OF [facility] EMERGENCY PROVIDER REPORT REPORT#:[id number] REPORT STATUS: Signed DATE:11/25/20 TIME: 1247 PATIENT: AUDI CELAYA UNIT #: [id number] ROOM/BED: AGE: 35 SEX: F PCP PHYS: No Primary or Family Ph ysician SERVICE AUTHOR: Shagufta Nicholas HUNTER TRAPPER * ALL edits or amendments must be made on the eMarketer/computer document * HPI-General Illness General Confirmed Patient Yes Initial Greet Date/Time 11/25/20 1235 Presentation Chief Complaint Dizziness, Palpitations, Shortne ss of breath Hx Obtained From Patient Onset Occurred Today Symptom Duration Waxes and wanes Progression since Onset Waxes and wanes Context of Onset CBD OIL Severity: Onset Moderate Severity: Current No pain currently, Mild Associated with Reports: Discharge, Shortnes s of breath. Denies: Chest pain, Congestion, Cough, Difficulty breathing, Fever, Pain, Syncope. Exacerbated by Nothing Relieved by Nothing Context Related History Denies: Drug use/abuse suspected. Similar Sx Previous No /Sexual Hx Status Denies Additional Context REPORTS THAT SHE TOOK A "HALF A DROPPER" OF CBD OIL AT 10:45. (THERE ARE NO DOSING RECOMMENDATIONS ON CONTAINER, BUT SHE HAS TAKEN THAT SAME DOSE BEFORE. HAS BEEN TAKING THIS BRAND OF CBD FOR 1 WEEK.) A N HOUR LATER SHE DEVELOPED LIGHTHEADEDNESS, PALPITATION S, AND SOB. SYMPTOMS COME AND GO. FEELS OK NOW OTHER THAN HER EYES FEEL HEAVY. TAKES CBD FOR STRESS R ELIEF. DENIES FEVER, URI SXS, COUGH, N/V/D, URINARY SXS, . DE NIES OTHER SUBSTANCE USE. NONTOXIC, NO DISTRESS. HAD NOT EATEN TODAY. TRIED EATING 2 PI ECES OF BREAD BEFORE ARRIVAL WITHOUT IMPROVEMENT. Review of Systems ROS Statements All systems rev neg except as marked. Review of Systems Constitutional Denies: Fever. Respiratory Reports: Shortness of breath . Denies: Cough, non-productive, Cough, productive, Dyspnea on exertion. Cardiovascular Reports: Palpitations. Denies: Chest pain, Dyspn ea on exertion, Syncope. Neurologic Reports: Lightheaded. Denies: Change LOC, Syncop e. Past Medical History - Adult Stated Complaint TAKEN CBD Allergies Coded Allergies: No Known Allergies (11/25/20) Home Medications Reported Medications No Known Home Medications Calculated suicide risk level: No risk Review of Nursing Notes Triage notes reviewed Smoking status for patients 13 years old or olde r: Never Smoker Physical Exam Vital Signs Vital Signs First Documented: Result Date Time Pulse Ox 100 11/25 1232 B/P 130/84 11/25 1232 B/P Mean 99 11/25 1232 O2 Delivery Room air 11/25 1232 Temp 36.7 11/25 1232 Pulse 93 11/25 1232 Resp 18 11/25 1232 Last Documented: Result Date Time Pulse Ox 100 11/25 1232 B/P 130/84 11/25 1232 B/P Mean 99 11/25 1232 O2 Delivery Room air 11/25 1232 Temp 36.7 11/25 1232 Pulse 93 11/25 1232 Resp 18 11/25 1232 Review of Vital Signs Reviewed Physical Exam General/Const General/Const Awake, Alert, No acute di stress, Well appearing, Well developed , Well hydrated, Well nourished, Cooperative, No t toxic appearing MS Head Head Atraumatic, Normocephalic Eyes Eyes Atraumatic Ears/Nose/Throat Ears/Nose/Throat Airway patent Resp/Chest Respiratory/Chest Breath sounds NL, Breath soun ds = bilat, No respiratory distress Cardiovascular Cardiovascular Heart rate NL, Regular rhythm, H eart sounds NL Abdomen/GI Abdomen/GI BS normoactive MS Lower Extrem Lower Ext/Pelvis/MS Gait NL Skin Skin Color NL, Warm, Dry Neurologic Neurologic Oriented X3, Speech NL, Memory NL, G ait NL Psychiatric Psychiatric Affect NL, Mood NL Interpretation Diagnostics Point of Care Testing Pulse Oximetry Pulse Ox % 100 On: Room air Interpretation Interpreted by me, Pulse oximetr y normal Time 1232 ECG #1 Interpretation Date 11/25/20 Time 1255 Interpreted by and reviewed by me, ED physician NL ECG Interpretation Normal rate, Normal sinus rhythm, No acute ischemic changes, No STEMI, Normal QRS Rate 83 Re-Evaluation MDM Re-Evaluation/Progress #1 Time of Re-Eval 1350 Re-Eval Status Improved Eval Following Treatment Pt. feels better, Condi tion resolved Differential Diagnosis Differential Diagnosis ALLERGIC REACTION, ADVERS E SIDE EFFECT TO SUPPLEMENT, ANXIETY Ruled Out Sepsis This is not sepsis. Patient Discharge Departure Vital Signs/Condition Vital Signs First Documented: Result Date Time Pulse Ox 100 11/25 1232 B/P 130/84 11/25 1232 B/P Mean 99 11/25 1232 O2 Delivery Room air 11/25 1232 Temp 36.7 11/25 1232 Pulse 93 11/25 1232 Resp 18 11/25 1232 Last Documented: Result Date Time Pulse Ox 100 11/25 1232 B/P 130/84 11/25 1232 B/P Mean 99 11/25 1232 O2 Delivery Room air 11/25 1232 Temp 36.7 11/25 1232 Pulse 93 11/25 1232 Resp 18 11/25 1232 All vital signs available at the time of this en try have been reviewed. Condition Stable Clinical Impression Clinical Impression Primary Impression: Adverse reaction to substanc e Disposition Decision Discharge )( Discharged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
[2023-06-10] MEDS ORDERED: KETOROLAC 30 MG/ML INJ ONE (11:48)
[2023-06-10] MEDS ORDERED: dexAMETHasone 10 MG/ML VIAL ONE (11:48)
[2023-06-10] MEDS ORDERED: NA CHLORIDE 0.9% 1,000 ML ONE (11:48)
[2023-06-10] MEDS ORDERED: METOCLOPRAMIDE 10 MG/2mL INJ ONE (11:48)
[2023-06-10] MEDS ORDERED: DIPHENHYDRAMINE 50 MG/ML VIAL ONE (11:48)
[2023-06-10 11:57] LABS: Potassium 3.3 mEq/L (3.5-5.1)
--- NOTE | 2023-06-10 13:09 | ER ---
Nurse's Notes [facility] Name: Katerina Howe Age: 37 yrs Sex: Female : 1985 Arrival Date: 06/10/2023 Time: 11:05 Bed 8 Private MD: Diagnosis: Dizziness and giddiness;Headache Presentation: 06/10 11:12 Chief complaint: Patient states: headache X 3 days, +dizziness intermittent, + n/v, no iw fever. Coronavirus screen: At this time, the client does not indicate any symptoms associated with coronavirus-19. Ebola Screen: Patient negative for fever greater than or equal to 101.5 degrees Fahrenheit, and additional compatible Ebola Virus Disease symptoms Patient denies exposure to infectious person. Patient denies travel to an Ebola-affected area in the 21 days before illness onset. No symptoms or risks identified at this time. Initial Sepsis Screen: Does the patient meet any 2 criteria? No. Patient's initial sepsis screen is negative. Does the patient have a suspected source of infection? No. Patient's initial sepsis screen is negative. Risk Assessment: Do you want to hurt yourself or someone else? Patient reports no desire to harm self or others. Onset of symptoms was June 08, 2023. 11:12 Method Of Arrival: Ambulatory iw 11:12 Acuity: SARAH 3 iw Triage Assessment: 11:49 Headache History: The patient has had previous headaches. ap3 11:49 Pain: Also complains of dizziness. ap3 11:49 Pain: Pain currently is 7 out of 10 on a pain scale. Pain began gradually. ap3 DIGITAL PRODUCER: 11:14 LMP 06/05/2023 iw Historical: - Allergies: 11:13 No Known Allergies; iw - Home Meds: 11:13 None [Active]; iw - PMHx: 11:13 Hypertensive disorder; sleeping disorder; iw - PSHx: 11:13 breast augmentation; Cholecystectomy; iw - Immunization history:: Adult Immunizations Client reports receiving the 2nd dose of the Covid vaccine. - Social history:: Smoking status: . Screenin:48 [facility] ED Fall Risk Assessment (Adult) History of falling in the last 3 months, ap3 including since admission No falls in past 3 months (0 pts). Abuse screen: Denies threats or abuse. Nutritional screening: No deficits noted. Tuberculosis screening: No symptoms or risk factors identified. Assessment: 11:48 General: Appears uncomfortable, Behavior is calm, cooperative, appropriate for age. ap3 Pain: Complains of pain in occipital area. Neuro: Level of Consciousness is awake, alert, obeys commands, Oriented to person, place, time, situation. Neuro: Reports dizziness. Cardiovascular: Patient's skin is warm and dry. Respiratory: Airway is patent Respiratory effort is even, unlabored, Respiratory pattern is regular, symmetrical. Vital Signs: 11:14 BP 150 / 98; Pulse 84; Resp 16; Temp 98.2; Pulse Ox 100% on R/A; Weight 58.97 kg; iw Height 4 ft. 11 in. ; Pain 6/10; 12:55 BP 135 / 93; Pulse 84; Pulse Ox 100% on R/A; ap3 11:14 Body Mass Index 26.26 (58.97 kg, 149.86 cm) iw 11:14 Pain Scale: Adult iw [place] Coma Score: 11:59 Eye Response: spontaneous(4). Motor Response: obeys commands(6). Verbal Response: kb oriented(5). Total: 15. ED Course: 11:06 Patient arrived in ED. am2 11:07 Estela Leyva FNP-C is [facility]. kb 11:07 Micheal Dwyer MD is Attending Physician. kb 11:13 Triage completed. iw 11:14 Arm band placed on. iw 11:24 Merari Laws, RN is Primary Nurse. ap3 11:34 Initial lab(s) drawn, by nh, sent to lab. Inserted saline lock: 22 gauge in left ap3 antecubital area, using aseptic technique. Blood collected. 11:48 Patient has correct armband on for positive identification. Call light in reach. Side ap3 rails up X 1. cafeteria monitor on. Pulse ox on. NIBP on. 13:08 Enrique Chan MD is Referral Physician. kb 13:15 Provided Education on: discharge instructions. ap3 13:15 No provider procedures requiring assistance completed. IV discontinued, intact, ap3 bleeding controlled, No redness/swelling at site. Pressure dressing applied. Administered Medications: 11:47 Drug: diphenhydrAMINE IVP 12.5 mg Route: IVP; Site: left antecubital; ap3 13:16 Follow up: Response: No adverse reaction ap3 11:47 Drug: Decadron - Dexamethasone IVP 10 mg Route: IVP; Site: left antecubital; ap3 13:16 Follow up: Response: No adverse reaction ap3 11:48 Drug: NS 0.9% IV 1000 ml Route: IV; Rate: 1000 ml; Site: left antecubital; ap3 13:16 Follow up: IV Status: Completed infusion ap3 11:48 Drug: metoCLOPramide IVP 10 mg Route: IVP; Site: left antecubital; ap3 13:16 Follow up: Response: No adverse reaction ap3 11:48 Drug: Ketorolac IVP 15 mg Route: IVP; Site: left antecubital; ap3 13:16 Follow up: Response: No adverse reaction ap3 Medication: 11:49 VIS not applicable for this client. ap3 Outcome: 13:08 Discharge ordered by MD. ponce 13:15 Discharged to home ambulatory. ap3 13:15 Condition: good 13:15 Discharge instructions given to patient, Instructed on discharge instructions, follow up and referral plans. Demonstrated understanding of instructions, follow-up care. 13:17 Patient left the ED. ap3 Signatures: Estela Leyva, WEED THINNER-C WEED THINNER-CkHuyen Staley, Merari Love RN am2 Merari Laws RN RN ap3
--- NOTE | 2023-06-10 13:09 | EDPHYS ---
Physician Documentation [facility] Name: Katerina Howe Age: 37 yrs Sex: Female : 1985 Arrival Date: 06/10/2023 Time: 11:05 Bed 8 Private MD: ED Physician Micheal Dwyer HPI: 06/10 11:58 This 37 yrs old Female presents to ER via Ambulatory with complaints of kb Dizziness, Headache. 11:58 The patient complains of pain to the left base of the skull and right base of the kb skull. The patient describes the headache as constant. Onset: The symptoms/episode began/occurred 3 day(s) ago. Associated signs and symptoms: Pertinent positives: dizziness, nausea, vomiting, Pertinent negatives: fever, Photophobia. Severity of symptoms: At its worst the pain was mild, moderate, in the emergency department the pain is unchanged. Headache History: The patient has had previous headaches and this one is similar to previous episodes. The symptoms are alleviated by nothing. the symptoms are aggravated by nothing. The patient has experienced similar episodes in the past. The patient has not recently seen a physician. Pt reports headache and dizziness for 3 days. States she has had this once before and they couldn't figure out why she was having either symptom. Followed up with a neurologist for this and was not diagnosed with anything. 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 - Social history:: Smoking status: . ROS: 11:57 Constitutional: Negative for fever, chills, and weight loss. kb 11:57 Neuro: Positive for dizziness, headache. 11:57 All other systems are negative. 11:59 Abdomen/GI: Positive for nausea and vomiting, Negative for abdominal pain, diarrhea. kb Exam: 11:57 Constitutional: This is a well developed, well nourished patient who is awake, alert, kb and in no acute distress. Head/Face: Normocephalic, atraumatic. Eyes: Pupils equal round and reactive to light, extra-ocular motions intact. Lids and lashes normal. Conjunctiva and sclera are non-icteric and not injected. Cornea within normal limits. Periorbital areas with no swelling, redness, or edema. ENT: Moist Mucous membranes Cardiovascular: Regular rate and rhythm with a normal S1 and S2. No gallops, murmurs, or rubs. No pulse deficits. Respiratory: Respirations even and unlabored. No increased work of breathing. Talking in full sentences Abdomen/GI: Soft, non-tender. No distention Skin: Warm, dry with normal turgor. Normal color. MS/ Extremity: Pulses equal, no cyanosis. Neurovascular intact. Full, normal range of motion. Neuro: Awake and alert, GCS 15, oriented to person, place, time, and situation. Moves all extremities. Normal gait. 12:39 ECG was reviewed by the Attending Physician. Vital Signs: 11:14 BP 150 / 98; Pulse 84; Resp 16; Temp 98.2; Pulse Ox 100% on R/A; Weight 58.97 kg; iw Height 4 ft. 11 in. ; Pain 6/10; 12:55 BP 135 / 93; Pulse 84; Pulse Ox 100% on R/A; ap3 11:14 Body Mass Index 26.26 (58.97 kg, 149.86 cm) iw 11:14 Pain Scale: Adult iw [place] Coma Score: 11:59 Eye Response: spontaneous(4). Motor Response: obeys commands(6). Verbal Response: kb oriented(5). Total: 15. MDM: 11:09 Patient medically screened. kb 11:58 Data reviewed: vital signs, nurses notes. kb 11:59 Differential diagnosis: migraine, tension headache. kb 13:06 Test considered but Not performed: CT: CT head considered, but pt has been seen here for dizziness 4 times over the last year and this episode is similar. Pt had normal CT head on 07/04/22 and 07/29/22. Pt educated to follow up with neurology for further evaluation. Counseling: I had a detailed discussion with the patient and/or guardian regarding: the historical points, exam findings, and any diagnostic results supporting the discharge/admit diagnosis, lab results, the need for outpatient follow up, a neurologist, to return to the emergency department if symptoms worsen or persist or if there are any questions or concerns that arise at home. 06/10 11:15 Order name: CBC with Diff; Complete Time: 11:52 kb 06/10 11:15 Order name: Basic Metabolic Panel; Complete Time: 12:00 kb 06/10 11:15 Order name: Test, Urine; Complete Time: 11:52 kb 06/10 11:15 Order name: Urinalysis w/ reflexes; Complete Time: 11:46 kb 06/10 11:47 Order name: Test, Serum; Complete Time: 13:02 kb 06/10 11:23 Order name: EKG; Complete Time: 11:23 kb 06/10 11:15 Order name: IV Start; Complete Time: 11:34 kb 06/10 11:23 Order name: EKG - Nurse/Tech; Complete Time: 11:59 kb EC:39 Rate is 86 beats/min. Rhythm is regular. QRS [place] is Normal. IA interval is normal at kb 122 msec. QRS interval is normal at 82 msec. QT interval is normal at 464 msec. Administered Medications: 11:47 Drug: diphenhydrAMINE IVP 12.5 mg Route: IVP; Site: left antecubital; ap3 13:16 Follow up: Response: No adverse reaction ap3 11:47 Drug: Decadron - Dexamethasone IVP 10 mg Route: IVP; Site: left antecubital; ap3 13:16 Follow up: Response: No adverse reaction ap3 11:48 Drug: NS 0.9% IV 1000 ml Route: IV; Rate: 1000 ml; Site: left antecubital; ap3 13:16 Follow up: IV Status: Completed infusion ap3 11:48 Drug: metoCLOPramide IVP 10 mg Route: IVP; Site: left antecubital; ap3 13:16 Follow up: Response: No adverse reaction ap3 11:48 Drug: Ketorolac IVP 15 mg Route: IVP; Site: left antecubital; ap3 13:16 Follow up: Response: No adverse reaction ap3 Disposition: 13:21 Co-signature as Attending Physician, Micheal Dwyer MD I reviewed the patient's care rt provided by the Advanced Practice Provider and agree with the diagnosis and treatment plan. Disposition Summary: 06/10/23 13:08 Discharge Ordered Location: Home kb Condition: Stable kb Diagnosis - Dizziness and giddiness kb - Headache kb Followup: kb - With: Emergency Department - When: As needed - Reason: Worsening of condition Followup: kb - With: Private Physician - When: 2 - 3 days - Reason: Recheck today's complaints, Continuance of care, Re-evaluation by your physician Followup: kb - With: Enrique Chan MD - When: 1 - 2 days - Reason: Recheck today's complaints Discharge Instructions: - Discharge Summary Sheet kb - General Headache Without Cause, [id number] kb - Dizziness, [id number] kb Forms: - Medication Reconciliation Form kb - Thank You Letter kb - Antibiotic Education kb - Prescription Opioid Use kb - Patient Portal Instructions kb Signatures: Dispatcher [employer] EDMS Estela Leyva, BARREL CLEANER-C BARREL CLEANER-Huyen Dickens RN RN iw Prokisch, Amanda, RN RN ap3 Micheal Dwyer MD MD rt
[2023-06-10 13:54] VITALS: TEMP 98.2; O2SAT 100
[2023-06-10 13:55] VITALS: BP 135/93
--- NOTE | 2023-06-10 18:48 | EKG ---
Test Date: 2023-06-10 Test Time: 12:00:32 Paper Cutter: ALINA MEASUREMENT RESULTS: Intervals: Rate: 86 [place]: 122 QRSD: 82 QT: 388 QTc: 464 [place]: P: 40 [place]: 122 QRS: 52 T: 40 INTERPRETIVE STATEMENTS: Normal sinus rhythm Normal ECG Compared to ECG 07/25/2022 18:45:06 No significant changes Electronically Signed On 06-10-23 18:47:37 CDT by Calvin Knapp
== END 2023-06-10 13:17 | disposition home or self-care (01) ==
LOC: ER 11:05
DX: R42 Dizziness and giddiness (principal); R51.9 Headache, unspecified
CPT/HCPCS: 36415; 80048; 81001; 81025; 84703; 85025; 93005; 96361; 96374; 96375; 99285; J1100; J1200; J2765; J7030